=== PATIENT | male | born 1985 | race Caucasian/White ===

== ENCOUNTER 2017-07-14 09:47 | Inpatient (IN) | payer OTHER ==
[~2017-07-14] VITALS: Ht 165.1 cm; Wt 85.9 kg
--- NOTE | 2017-07-14 09:49 | ED PSYCHIATRIC COMPLAINT ---
History of Present Illness General Chief Complaint: Psychiatric Related Complaint Stated Complaint: BIBA, DEPRESSION,+SI Source: patient Exam Limitations: no limitations Vital Signs & Intake/Output Vital Signs & Intake/Output Vital Signs Date Time Temp Pulse Resp B/P B/P Pulse O2 O2 Flow FiO2 Mean Ox Delivery Rate 07/14 1010 97 Room Air Room Air 07/14 1004 96.8 96 18 138/83 97 Room Air Room Air Allergies Coded Allergies: Penicillins (Intermediate, RASH 07/14/17) Reconcile Medications Cariprazine HCl (Vraylar) 1.5 MG CAPSULE 1 TAB PO DAILY MENTAL HEALTH ( Reported) Citalopram Hydrobromide (Citalopram HBr) 20 MG TABLET 1 TAB PO DAILY MENTAL HEALTH (Reported) Esomeprazole (Nexium) 40 MG CAPSULE.DR 1 CAP PO DAILY ACID REFLUX (Reported) Levetiracetam (Levetiracetam ER) 500 MG TAB.ER.24H 2 TAB PO BID SEIZURES ( Reported) [place] Carbonate ([place] Carbonate ER) 300 MG TABLET.ER 1 CAP PO DAILY MENTAL HEALTH (Reported) [place] Carbonate ([place] Carbonate ER) 450 MG TABLET.ER 1 TAB PO QPM MENTAL HEALTH (Reported) Olanzapine 5 MG TABLET 1 TAB PO QPM MENTAL HEALTH (Reported) Phenytoin Sodium Extended 100 MG CAPSULE 1 CAP PO BID SEIZURES (Reported) Triage Nurses Notes Reviewed? yes Onset: Abrupt Duration: day(s): (FEW) Timing: recent history Severity: moderate, severe Associated Symptoms: suicidal ideation, DEPRESSION HPI: 31 year old male presents via EMS from [facility] for suicidal ideation with plan. History of 3 suicide attempts and longstanding history of depression with psychotic symptoms. Patient has a plan to cut his wrists this morning. He had a knife and was able to stop himself. Symptoms have gotten worse since and reports increased stress from work. Patient reports he was receiving multiple requests for more tasks which stressed amount and then he fell asleep. Patient on lithium and olanzapine. Last hospitaliztion? for rachid was in 2015. Patient went to [facility] this morning voluntarily. Past History Travel History Traveled to [place] past 21 day No Medical History Any Pertinent Medical History? see below for history Neurological: seizure Psychiatric: bipolar disease Surgical History Surgical History: non-contributory Psychosocial History Who do you live with Family What is your primary language Tuvaluan Illicit Drug Use: denies illicit drug use Family History Comment: sister bipolar grandfather depression Hx Contributory? Yes Review of Systems Review of Systems Constitutional: Denies: chills, fever. EENTM: Reports: no symptoms. Respiratory: Reports: no symptoms. Cardiovascular: Reports: no symptoms. GI: Reports: no symptoms. Genitourinary: Reports: no symptoms. Musculoskeletal: Reports: no symptoms. Skin: Reports: no symptoms. Neurological/Psychological: Reports: ataxia, depressed. Hematologic/Endocrine: Reports: no symptoms. Immunologic/Allergic: Reports: no symptoms. All Other Systems: Reviewed and Negative Physical Exam Physical Exam General Appearance: well developed/nourished, alert, awake, mild distress, moderate distress Head: atraumatic, normal appearance Eyes: Bilateral: normal appearance. Ears, Nose, Throat: hearing grossly normal Neck: normal inspection, supple, full range of motion Respiratory: normal breath sounds Cardiovascular: regular rate/rhythm Extremities: normal range of motion Neurological/Psychiatric: no motor/sensory deficits, awake, alert Appearance/Memory/Insight: appropriate insight, disheveled Behavoir/Eye Contact/Speech: normal speech, good eye contact Thoughts/Hallucinations: no apparent hallucination Skin: intact, normal color, warm/dry SAD PERSONS SAD PERSONS Response Value Male Sex? yes 1 Depression/Hopelessness? yes 2 Previous Attempts/Psych Care yes 1 Organized/Serious Attempt yes 2 Social Support? has support 0 Stated Future Intent? yes 2 Total 8 SAD PERSONS Done? yes Progress Differential Diagnosis: BIPOLAR ILLNESS, SUICIDAL IDEATION Plan of Care: Orders Procedure Date/time Status LITHIUM 07/18 0600 Active Regular Diet 07/14 L Complete Regular Diet 07/14 D Active Admit to inpatient 07/14 1150 Active EKG 07/14 1148 Active Lab Add-on Test 07/14 1145 Active Lab Add-on Test 07/14 1143 Active Patient Data - inpatient psych 07/14 1135 Active Admit to inpatient psych 07/14 1135 Active TSH REFLEX 07/14 1025 Active LIPID PANEL 07/14 1025 Active GLYCOSYLATED HGB 07/14 1025 Active DILANTIN 07/14 1025 Active Add-on Test (ER Only) 07/14 1009 Active Continuous Observation Monitor 07/14 0950 Active URINE DRUGS OF ABUSE 07/14 0950 Complete LITHIUM 07/14 0950 Active ETHANOL 07/14 0950 Active COMPREHENSIVE METABOLIC PANEL 07/14 0950 Active CBC WITHOUT DIFFERENTIAL 07/14 0950 Complete ED CRISIS PSYCH CONSULT 07/14 0950 Active Vital Signs 07/14 UNK Active Nursing Misc 07/14 UNK Active Alternative Nursing Therapy 07/14 UNK Active Activity/Ambulation 07/14 UNK Active Current Medications Sig/Evelyne Start time Last Medication Dose Stop Time Status Admin Cholecalciferol 2,000 IU DAILY 07/15 1000 UNVr (Vitamin D) Citalopram 20 MG DAILY 07/15 1000 UNVr Hydrobromide (Celexa) [place] Carbonate 300 MG DAILY@0807/15 08 UNVr (Lithobid Slow Release) Omeprazole 40 MG DAILY AC 07/15 07 UNVr (Prilosec) Levetiracetam 1,000 MG BID 07/14 2199 UNVr (Keppra) Olanzapine 5 MG AT BEDTIME 07/14 2199 UNVr (Zyprexa) Phenytoin 100 MG BID 07/14 2199 UNVr (Dilantin ER) [place] Carbonate 600 MG DAILY@07/14 UNVr (Lithobid Slow Release) Hydroxyzine HCl 25 MG AT BEDTIME NEED.. 07/14 1200 UNVr (Atarax) Acetaminophen 650 MG Q6P PRN 07/14 1145 UNVr (Tylenol) Al Hydroxide/Mg 30 ML Q4-6 PRN PRN 07/14 1145 UNVr Hydroxide (Maalox Plus) Benztropine Mesylate 1 MG Q6P PRN 07/14 1145 UNVr (Cogentin 1 MG Tablet) Benztropine Mesylate 1 MG Q6P PRN 07/14 1145 UNVr (Cogentin) Gabapentin 300 MG Q6P PRN 07/14 1145 UNVr (Neurontin) Haloperidol 5 MG Q6P PRN 07/14 1145 UNVr (Haldol) Haloperidol 5 MG Q6P PRN 07/14 1145 UNVr (Haldol) Lorazepam 2 MG Q6P PRN 07/14 1145 UNVr (Ativan) Magnesium Hydroxide 30 ML AT BEDTIME PRN 07/14 1145 UNVr (Milk Of Magnesia) Laboratory Tests 07/14/17 1025: Phenytoin Pending, [place] 0.6, Serum Alcohol < 10.0 07/14/17 1025: Anion Gap 11, Estimated GFR > 60, BUN/Creatinine Ratio 11.4, Glucose 107 H, Hemoglobin A1c Pending, Calcium 9.4, Total Bilirubin 0.3, AST 23, ALT 48, Alkaline Phosphatase 141 H, Total Protein 7.7, Albumin 4.3, Globulin 3.4, Albumin/Globulin Ratio 1.3, Triglycerides Pending, Cholesterol Pending, LDL Cholesterol, Calc Pending, HDL Cholesterol Pending, Cholesterol/HDL Ratio Pending, TSH &T3 &Free T4 Intrp Pending, CBC w Diff NO MAN DIFF REQ, RBC 5.03, MCV 86.3, MCH 29.7, RDW 12.8, MPV 7.3 L, Gran % 70.9, Lymphocytes % 19.4 L, Monocytes % 7.6, Eosinophils % 1.8, Basophils % 0.3, Absolute Granulocytes 6.5, Absolute Lymphocytes 1.8, Absolute Monocytes 0.7 H, Absolute Eosinophils 0.2, Absolute Basophils 0, PUBS MCHC 34.4, Urine Opiates Screen < 100.00, Methadone Screen < 40, Barbiturate Screen < 60, Ur Phencyclidine Scrn < 6.00, Amphetamines Screen < 100, U Benzodiazepines Scrn < 85, Urine Cocaine Screen < 50, Urine Cannabis Screen < 5.00 Departure Departure Time of Disposition: 1150 Disposition: STILL A PATIENT Condition: Stable Clinical Impression Primary Impression: Bipolar disorder with psychotic features Referrals: Anuradha Dozier MD (PCP/Family) Departure Forms: Customer Survey General Discharge Information Psych Admission Note Psychiatric Admission: I have seen and evaluated LE MORAN. I have also reviewed all the pertinent lab results and diagnostic results. LE MORAN will be admitted to our inpatient Psychiatric unit for treatment and care.
--- NOTE | 2017-07-14 10:14 | ED PSY CRISIS COLLATERAL NOTE ---
Collateral Note Collateral Note Family/Inform/Farhana Contacts: Received call from Lizbet Guillen APRN, OPS stating she met with patient this morning for a med management appointment and is sending pt over for crisis evaluation due to his inability to renew promise for safety. Patient is a 31 year old male with diagnoses of epilepsy and Bipolar Disorder with psychotic features MRE depressed. Patient is prescribed 2 anticonvulsants for epilepsy. Lizbet prescribes Celexa, [place], Vraylar, Zyprexa and Atarax (as needed for sleep, which patient reports he has not been taking). Patient a history of suicide attempt by overdose and was last inpatient 3 years ago. Currently, patient is experiencing work and financial stress as he was recently demoted. Lizbet reports during his most recent manic episode he spent thousands of dollars. Today, per Lizbet, patient had reported worsened depressive symptoms with +SI over the past two days with plan to slice my wrists. States he did not act on thoughts as his and children were there, however patient believes he would have followed through if they were not.
[2017-07-14 10:39] LABS: ABSOLUTE BASOPHIL COUNT 0 /CUMM (0.0-0.2); ABSOLUTE EOSINOPHIL COUNT 0.2 /CUMM (0.0-0.7); ABSOLUTE GRANULOCYTE CT 6.5 /CUMM (1.4-6.5); ABSOLUTE LYMPH COUNT 1.8 /CUMM (1.2-3.4); ABSOLUTE MONOCYTE COUNT 0.7 /CUMM (0.10-0.60); BASOPHIL % 0.3 % (0.0-2.0); EOSINOPHIL % 1.8 % (0-5); GRANULOCYTE % 70.9 % (42.2-75.2); HEMATOCRIT 43.4 % (42-52); MEAN CORPUSCULAR HGB 29.7 PG (27.0-31.0); MEAN CORPUSCULAR HGB CONC 34.4 G/DL (33.0-37.0); MEAN CORPUSCULAR VOLUME 86.3 FL (80.0-94.0); MEAN PLATELET VOLUME 7.3 FL (7.4-10.4); PLATELET COUNT 225 /CUMM (130-400); RBC DISTRIBUTION WIDTH 12.8 % (11.5-14.5); RED BLOOD CELL CT 5.03 /CUMM (4.70-6.10); WHITE BLOOD CELL COUNT 9.1 /CUMM (4.8-10.8)
[2017-07-14 10:54] LABS: LITHIUM 0.6 mmol/L (0.6-1.2)
[2017-07-14] MEDS ORDERED: VRAYLAR1.5 MG PO (11:23)
[2017-07-14] MEDS ORDERED: NEXIUM40 M1 PO (11:23)
[2017-07-14] MEDS ORDERED: LEVETIRACETAM500 M3 PO (11:23)
[2017-07-14] MEDS ORDERED: LITHIUM CARBON300 M6 PO (11:24)
[2017-07-14] MEDS ORDERED: PHENYTOIN SODI100 MG PO (11:24)
[2017-07-14] MEDS ORDERED: LITHIUM CARBON450 M1 PO (11:24)
[2017-07-14] MEDS ORDERED: OLANZAPINE5 M2 PO (11:24)
[2017-07-14] MEDS ORDERED: CITALOPRAM HBR20 MG PO (11:25)
--- NOTE | 2017-07-14 12:22 | ED PSYCH CRISIS CONSULTATION ---
Crisis Consult Basic Assessment Date of Consult: 07/14/17 Responsible Person/Accompanied By: self Insurance Authorization: Insurance #1: Insurance name: [employer] Phone number: Policy number: [id number] Group number: [id number] Authorization number: ED Provider: Patient's ED Provider: Geneva Lara MD Primary Care Physician: Patient's PCP: Jacoby CASTILLO,Anuradha PCP's Current Psychiatrist: Lizbet Breen APRN Chief Complaint: Psychiatric Related Complaint Patient's Quote: "Basically since . I've been depressed. Suicidal Sat & Sun " Present Illness: Patient is a 31 year old man presenting in the ED following a medication management meeting with Lizbet Breen APRN. Patient endorses suicidal ideation with a plan to cut his wrists. Patient reports he has been feeling increasingly depressed since last and suicidal Friday and Friday. He reports he did not attempt to harm or kill himself over the weekend since his and two children were home. Patient endorses the following depressive symptoms: sleep disturbance- sleeping more, isolation, decreased appetite, decreased concentration, and suicidal ideation. Patient denies HI/AH/VH at this time. Patients work stress and financial stress are triggers to increased depression. Patient is currently prescribed Celexa 20mg daily, Zyprexa 5pm at night, Vraylar 1.5mg at night, Reeves (300mg in the AM & 600mg in the evening) and Atarax 25 mg at night prn sleep. Patient reports he has weight gain from the Zyprexa and has not taken the Atarax for sleep. Patients lithium level was 0.6 on 07/14/17 while in ED. Patients toxicology screen was negative for all substances. Patient is diagnosed with Epilepsy and is prescribed two anticonvulsant medications. His last seizure was 5 years ago. Patient has a long history of mental health treatment including inpatient psychiatric hospitalizations at [place] (2011) and [place] (2013); IOP at [place]; and outpatient at [place], Dr. Briones ([place]), [facility] and [facility]. Patient is a current outpatient client with Lizbet Breen and has been in treatment with her since 2016 when his insurance changed and he was no longer able to see Dr. Briones. Patient reports 3 past suicide attempts since 2007, all overdoses with the most severe being overdosing on 150 tablets of Lamictal. Patient states today is the first time he has sought help before making a suicide attempt while experiencing suicidal ideation. Per Lizbet Breen APRN- Received call from Lizbet Breen APRN, [facility] stating she met with patient this morning for a med management appointment and is sending pt over for crisis evaluation due to his inability to renew promise for safety. Patient is a 31 year old male with diagnoses of epilepsy and Bipolar Disorder with psychotic features MRE depressed. Patient is prescribed 2 anticonvulsants for epilepsy. Lizbet prescribes Celexa, Reeves, Vraylar, Zyprexa and Atarax (as needed for sleep, which patient reports he has not been taking). Patient a history of suicide attempt by overdose and was last inpatient 3 years ago. Currently, patient is experiencing work and financial stress as he was recently demoted. Lizbet reports during his most recent manic episode he spent thousands of dollars. Today, per Lizbet, patient had reported worsened depressive symptoms with +SI over the past two days with plan to slice my wrists. States he did not act on thoughts as his and children were there, however patient believes he would have followed through if they were not. 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 Patient will be admitted to CPS as he endorses suicidal ideation with thoughts to cut his wrist. Patient will sign in voluntarily. Patient's Address: [address] [place] [address] Other Who Do You Live With? Family Family/Informants Interviewed: at work. Spoke to Lizbet breen. Allergies - Coded Allergies: Penicillins (Intermediate, RASH 07/14/17) Current Medications - Scheduled Medications Cariprazine HCl (Vraylar) 1.5 MG CAPSULE 1 TAB PO DAILY MENTAL HEALTH #30 ( Reported) Entered as Reported by James Cheng on 07/14/17 1123 Citalopram Hydrobromide (Citalopram HBr) 20 MG TABLET 1 TAB PO DAILY MENTAL HEALTH #30 (Reported) Entered as Reported by James Cheng on 07/14/17 1125 Esomeprazole (Nexium) 40 MG CAPSULE.DR 1 CAP PO DAILY ACID REFLUX #90 ( Reported) Entered as Reported by James Cheng on 07/14/17 1123 Levetiracetam (Levetiracetam ER) 500 MG TAB.ER.24H 2 TAB PO BID SEIZURES #120 (Reported) Entered as Reported by James Cheng on 07/14/17 1123 Reeves Carbonate (Reeves Carbonate ER) 300 MG TABLET.ER 1 CAP PO DAILY MENTAL HEALTH #60 (Reported) Entered as Reported by James Cheng on 07/14/17 1124 Reeves Carbonate (Reeves Carbonate ER) 450 MG TABLET.ER 1 TAB PO QPM MENTAL HEALTH #30 (Reported) Entered as Reported by James Cheng on 07/14/17 1124 Olanzapine 5 MG TABLET 1 TAB PO QPM MENTAL HEALTH #30 (Reported) Entered as Reported by James Cheng on 07/14/17 1124 Phenytoin Sodium Extended 100 MG CAPSULE 1 CAP PO BID SEIZURES #180 (Reported ) Entered as Reported by James Cheng on 07/14/17 1124 Laboratory Results: Laboratory Tests 07/14/17 1025: Phenytoin 6.7 L, Reeves 0.6, Serum Alcohol < 10.0 07/14/17 1025: Anion Gap 11, Estimated GFR > 60, BUN/Creatinine Ratio 11.4, Glucose 107 H, Hemoglobin A1c Pending, Calcium 9.4, Total Bilirubin 0.3, AST 23, ALT 48, Alkaline Phosphatase 141 H, Total Protein 7.7, Albumin 4.3, Globulin 3.4, Albumin/Globulin Ratio 1.3, Triglycerides 302 H, Cholesterol 242 H, LDL Cholesterol, Calc 131 H, HDL Cholesterol 51, Cholesterol/HDL Ratio 5 H, TSH & T3 &Free T4 Intrp Pending, CBC w Diff NO MAN DIFF REQ, RBC 5.03, MCV 86.3, MCH 29.7, RDW 12.8, MPV 7.3 L, Gran % 70.9, Lymphocytes % 19.4 L, Monocytes % 7.6, Eosinophils % 1.8, Basophils % 0.3, Absolute Granulocytes 6.5, Absolute Lymphocytes 1.8, Absolute Monocytes 0.7 H, Absolute Eosinophils 0.2, Absolute Basophils 0, PUBS MCHC 34.4, Urine Opiates Screen < 100.00, Methadone Screen < 40, Barbiturate Screen < 60, Ur Phencyclidine Scrn < 6.00, Amphetamines Screen < 100, U Benzodiazepines Scrn < 85, Urine Cocaine Screen < 50, Urine Cannabis Screen < 5.00 Past History Past Medical History Neurological: seizure EENT: NONE Cardiovascular: NONE Respiratory: NONE Gastrointestinal: GERD Hepatic: NONE Renal: NONE Musculoskeletal: NONE Psychiatric: bipolar disease Endocrine: NONE Blood Disorders: NONE Cancer(s): adrenal cancer Past Surgical History Surgical History: non-contributory Psychosocial History Strengths/Capabilities: 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 Despite reporting financial problems he reports he can pay his mortgage every month. Patient is seeking help prior to SA when in past he has attempted suicide then recieved tx. Physical Limitations (Interventions): none observed Psychiatric Treatment History Psych Treatment Psychiatric Treatment Yes Inpatient Treatment Yes Outpatient Treatment Yes Location of Treatment IP- [facility] [place]; OP- [facility] [place], Dr. Briones, [facility] Reason for Treatment Suicide Attempt, Suicidal Ideation, Psychosis, Depression Dates of Treatment multiple starting in 2002 Response to Treatment fair Diagnosis by History: Bipolar Disorder with psychotic features MRE depressed Substance Use/Abuse History Drug Use/Abuse Substances Used/Abused No Substance Abuse Treatment Substance Abuse Treatment Past Substance Abuse [place] Yes Inpatient Treatment No Outpatient Treatment Yes Location of Treatment [facility] Reason for Treatment cocaine abuse Dates of Treatment 2002 Response to Treatment stopped use of cocaine and moved to [place] Current Mental Status Mental Status Orientation: Person, Place, Situation Affect: Flat Speech: Soft Neuro-vegetative: Appetite Decreased, Concentration Poor, Energy Decreased, Sleep Disturbance Appearance Appearance- Dress/Hygiene: Patient presented in hospital attire wearing eye glasses. No other remarkable features. Behaviors Thought Process: WNL Thought Content: WNL Memory: WNL Insight: Fair SI/HI Risk Assessment Past Suicidal Ideation/Attempts Yes Current Suicidal Ideation/Att Yes Past Homicidal Ideation/Att: No Current Homicidal Ideation/Attempts No Degree of Intent: Plan (thinking about cutting wrists) Danger To: Self Risk Factors: history of suicide atmpts, SA/MH hospitalized, male, limited support Lethality Ratin PTSD Checklist PTSD Done? patient declined ED Management Sitter: Yes Restraints: No DSM5/PS Stressors/Medical Prob Diagnosis' (DSM 5, Stressors, Medical): F31.5 Bipolar Disorder with psychotic features, MRE depressed Epilepsy (controlled by medication) GERD Work and financial stress Current GAF: 20 Departure Disposition Psych Medical Clearance Date: 07/14/17 Medically Cleared at: 1104 Time Started: 1104 Time Ended: 1124 Psychiatrist Consulted: David Rasheed MD Date Disposition Established: 07/14/17 Time Disposition Established: 113 Plan for Disposition - Modality: Inpatient Psychiatry Rationale for Disposition: Pt +SI with 3 previous Suicide attempts by overdose Type of IP Admission: Voluntary Referrals Jacoby CASTILLO,Anuradha (PCP/Family)
[2017-07-14 12:55] VITALS: BP 128/77
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
--- NOTE | 2017-07-14 14:32 | CPS PROVIDER INIT ASMT PSYCH ---
Psychiatric Admission Printing Screen Assembler's Note Reviewed: Yes Patient Seen and Examined: Yes Identifying Information: cancel, error, duplicate Past Psychiatric History - Include inpatient and outpatient treatment Allergies: Coded Allergies: Penicillins (Intermediate, RASH 07/14/17) - Include any medical condition(s) that may - impact the patient's recovery/remission Past History Medical History Neurological: seizure EENT: NONE Cardiovascular: NONE Respiratory: NONE Gastrointestinal: GERD Hepatic: NONE Renal: NONE Musculoskeletal: NONE Psychiatric: bipolar disease Endocrine: NONE Blood Disorders: NONE History of MRSA: No History of VRE: No History of CDIFF: No Isolation History: Standard Healthly Behaviors Screening Tobacco Screening Tobacco Use from ED Docu: Never used - If tobacco counseling indicated - the following topics are required. - #1 Recognizing dangerous situations. - #2 Coping Skills. - #3 Basic information about quitting. Alcohol Screening - ETOH screen POS if BAL >=80 or Audit-C>= M4/F3 Audit-C Score from Diag Assess: 0 - If ETOH counseling indicated - the following topics are required. - #1 Express concern about the patient's - drinking at unhealthy levels, include informing - of national norms for moderate drinking: - men <= 14 drinks/week, max 4 drinks/occasion - women <= 7 drinks/week, max 3 drinks/occasion - #2 Providing feedback, including linking alcohol to - negative physical effects (liver injury, hypertension) - negative emotional effects (relationship problems and - depression) - negative occupational consequences (reduced work - performance) - #3 Advising the patient to abstain from alcohol or - to drink below national norms for moderate drinking - (as listed above). Metabolic Screening - Screen if on a Neuroleptic Medication - Metabolic screening should include: - Blood Pressure, BMI, Glucose or Hgb A1c, & a - Lipid profile from within the past 365 days. Exam and Plan Impression/Plan - Include all active medical diagnosis that require tx - Initial Tx Plan for Active Psych & Medical Conditions - Factors that would help patient function - in a less restrictive setting.
--- NOTE | 2017-07-14 15:17 | Cons- Medical ---
General Information and HPI Consulting Request Date of Consult: 07/14/17 Requested By: David Rasheed MD Reason for Consult: Medical H & P Source of Information: patient, old records Exam Limitations: no limitations History of Present Illness: 31-year-old male past medical history of bipolar disorder and epilepsy who is here with acute suicidality in the setting of a bipolar disorder. He denies any other medical problems. He says he was only hospitalized for a suicidal attempt in the past. He says that he is followed by a neurologist at [facility] for his epilepsy and his last seizure was 5 years ago. His primary care physician is Biju Dozier MD. He denies nausea, vomiting, diarrhea. He denies cough, chest pain or shortness of breath. Allergies/Medications Allergies: Coded Allergies: Penicillins (Intermediate, RASH 07/14/17) Home Med List: Cariprazine HCl (Vraylar) 1.5 MG CAPSULE 1 TAB PO DAILY MENTAL HEALTH ( Reported) Citalopram Hydrobromide (Citalopram HBr) 20 MG TABLET 1 TAB PO DAILY MENTAL HEALTH (Reported) Esomeprazole (Nexium) 40 MG CAPSULE.DR 1 CAP PO DAILY ACID REFLUX (Reported) Levetiracetam (Levetiracetam ER) 500 MG TAB.ER.24H 2 TAB PO BID SEIZURES ( Reported) [place] Carbonate ([place] Carbonate ER) 300 MG TABLET.ER 1 CAP PO DAILY MENTAL HEALTH (Reported) [place] Carbonate ([place] Carbonate ER) 450 MG TABLET.ER 1 TAB PO QPM MENTAL HEALTH (Reported) Olanzapine 5 MG TABLET 1 TAB PO QPM MENTAL HEALTH (Reported) Phenytoin Sodium Extended 100 MG CAPSULE 1 CAP PO BID SEIZURES (Reported) Review of Systems Review of Systems Constitutional: Denies: no symptoms, chills, diaphoresis, fever. Cardiovascular: Denies: no symptoms, chest pain, edema, orthopena. Respiratory: Denies: no symptoms, cough, hemoptysis, orthopnea. GI: Denies: no symptoms, abdominal pain, bloating, constipation. Genitourinary: Denies: no symptoms, discharge, dysuria. All Other Systems: Reviewed and Negative Past History Travel History Traveled to [place] past 21 day No Medical History Neurological: seizure EENT: NONE Cardiovascular: NONE Respiratory: NONE Gastrointestinal: GERD Hepatic: NONE Renal: NONE Musculoskeletal: NONE Psychiatric: bipolar disease Endocrine: NONE Blood Disorders: NONE Surgical History Surgical History: non-contributory Psychosocial History Where Do You Live? Home Who Do You Live With? spouse Smoking Status: Never Smoked ETOH Use: denies use Illicit Drug Use: denies illicit drug use Other Social History: Pt is and lives at home with his and children. 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 Family history is noncontributory. He says his father is alive and healthy and his mother when she was in [place] so he doesn't know what she off. 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 Exam & Diagnostic Data Last 24 Hrs of Vital Signs/I&O Vital Signs Date Time Temp Pulse Resp B/P B/P Pulse O2 O2 Flow FiO2 Mean Ox Delivery Rate 07/14 1255 97.3 88 128/77 07/14 1227 98.3 86 18 130/81 99 Room Air Room Air 07/14 1010 97 Room Air Room Air 07/14 1004 96.8 96 18 138/83 97 Room Air Room Air Intake & Output 07/14 1600 07/14 0800 07/14 0000 Intake Total Output Total Balance Patient 85.899 kg Weight Weight Reported by Patient Measurement Method Physical Exam General Appearance: well developed/nourished, no apparent distress, alert, awake Head: atraumatic, normal appearance Eyes: Bilateral: normal appearance, PERRL, EOMI. Ears, Nose, Throat: normal pharynx, normal ENT inspection Neck: normal inspection, supple, full range of motion Respiratory: normal breath sounds, chest non-tender, no respiratory distress Cardiovascular: regular rate/rhythm Gastrointestinal: normal bowel sounds, soft, non-tender, no organomegaly Back: normal inspection, normal range of motion Extremities: normal capillary refill, no edema Neurologic/Psych: no motor/sensory deficits, awake, alert, oriented x 3, normal gait Other Physical Findings: Pt is awake, alert and oriented, cranial nerves III-12 are intact, motor and sensory are intact. Reflexes are 2+ and symmetric and gait is normal. Last 24 Hrs of Labs/Mata: Laboratory Tests 07/14/17 1025: Phenytoin 6.7 L, [place] 0.6, Serum Alcohol < 10.0 07/14/17 1025: Anion Gap 11, Estimated GFR > 60, BUN/Creatinine Ratio 11.4, Glucose 107 H, Hemoglobin A1c 4.9, Calcium 9.4, Total Bilirubin 0.3, AST 23, ALT 48, Alkaline Phosphatase 141 H, Total Protein 7.7, Albumin 4.3, Globulin 3.4, Albumin/ Globulin Ratio 1.3, Triglycerides 302 H, Cholesterol 242 H, LDL Cholesterol, Calc 131 H, HDL Cholesterol 51, Cholesterol/HDL Ratio 5 H, TSH &T3 &Free T4 Intrp 2.650, CBC w Diff NO MAN DIFF REQ, RBC 5.03, MCV 86.3, MCH 29.7, RDW 12.8, MPV 7.3 L, Gran % 70.9, Lymphocytes % 19.4 L, Monocytes % 7.6, Eosinophils % 1.8, Basophils % 0.3, Absolute Granulocytes 6.5, Absolute Lymphocytes 1.8, Absolute Monocytes 0.7 H, Absolute Eosinophils 0.2, Absolute Basophils 0, PUBS MCHC 34.4, Urine Opiates Screen < 100.00, Methadone Screen < 40, Barbiturate Screen < 60, Ur Phencyclidine Scrn < 6.00, Amphetamines Screen < 100, U Benzodiazepines Scrn < 85, Urine Cocaine Screen < 50, Urine Cannabis Screen < 5.00 Assessment/Plan Assessment/Plan 31-year-old male past medical history of epilepsy was maintained on phenytoin and Keppra as an outpatient and has been seizure-free for the past 5 years. He is here with depressive symptoms with bipolar disorder. Continue his Keppra and his phenytoin. Treatment of his depressive symptoms as per psychiatry. Outpatient neurological and PCP follow-up on discharge. Problem List: 1. Bipolar disorder with psychotic features Consult Acknowledgment - Thank you for your consult request.
--- NOTE | 2017-07-14 15:42 | CPS PROVIDER INIT ASMT PSYCH ---
Psychiatric Admission Cellar Hand's Note Reviewed: Yes Patient Seen and Examined: Yes Identifying Information: 32-year-old male of [place] origins presented to the medical emergency room following a visit with Lizbet breen APRN Chief Complaint: The patient endorsed suicidal ideation with a plan to cut his wrist Reaction to Hospitalization: The patient was agreeable to the hospitalization History of Present Illness Onset of Illness: The patient presented to see his nurse practitioner Lizbet breen APRN she suggested that he come to the emergency room to be evaluated for admission. The reason for the admission was increase in his symptoms and reporting suicidal thoughts. Circumstances Leading to Admission: Patient reported suicidal thinking during the visit for medication management with his nurse practitioner Problem(s) Justifying Need for Admission: Suicidal thinking Past Psychiatric History Past Diagnosis(es)- if any: Bipolar mood disorder Epilepsy Rule out mood disorder due to epilepsy Past Precipitating Factors- if any: Stress at work - Include inpatient and outpatient treatment Treatment History: The patient has been previously and Inpatient Psychiatry and has been most recently attending the outpatient treatment at [facility] History of Suicide Attempts or Gestures The patient reportedly had 3 previous suicide attempts the most serious one was his first which was an overdose on reportedly 150 tablets of Lamictal Substance Abuse History: Past history of cocaine use in 2002 for about 6 months Allergies: Coded Allergies: Penicillins (Intermediate, RASH 07/14/17) Home Med List: Vraylar 1.5 mg once daily Citalopram 20 mg once daily Nexium 40 mg once daily Keppra 1000 mg twice daily [place] carbonate 300 mg in the morning and 450 mg in the evening olanzapine 5 mg in the evening and phenytoin 100 mg twice daily - Include any medical condition(s) that may - impact the patient's recovery/remission Past Medical History: Epilepsy since age 6 also Past History Medical History Neurological: seizure EENT: NONE Cardiovascular: NONE Respiratory: NONE Gastrointestinal: GERD Hepatic: NONE Renal: NONE Musculoskeletal: NONE Psychiatric: bipolar disease Endocrine: NONE Blood Disorders: NONE History of MRSA: No History of VRE: No History of CDIFF: No Isolation History: Standard Surgical History Surgical History: none Psychiatric Family/Social Hx Family History Psychiatric Illness: None known family history of psychiatric illness Substance Use: Denied Suicides: Denied Other Family History: Mother young age and in [place] from of any acute illness Social History Living Situation: Lives with his and 2 children Significant Relationships (family/friends): and 2 children Education: He has a [employer] degree Vocation/Occupation: Works in the [employer] Legal: no known legal problems Healthly Behaviors Screening Tobacco Screening Tobacco Use from ED Docu: Never used - If tobacco counseling indicated - the following topics are required. - #1 Recognizing dangerous situations. - #2 Coping Skills. - #3 Basic information about quitting. Status of Tobacco Cessation Counseling: Not Applicable Cessation Med Status Not Applicable Alcohol Screening - ETOH screen POS if BAL >=80 or Audit-C>= M4/F3 Audit-C Score from Diag Assess: 0 Blood Alcohol Level: Laboratory Tests 07/14 1025 Toxicology Serum Alcohol (<10 MG/DL) < 10.0 Alcohol Use Screening Results: Neg per Audit C &/or BAL - If ETOH counseling indicated - the following topics are required. - #1 Express concern about the patient's - drinking at unhealthy levels, include informing - of national norms for moderate drinking: - men <= 14 drinks/week, max 4 drinks/occasion - women <= 7 drinks/week, max 3 drinks/occasion - #2 Providing feedback, including linking alcohol to - negative physical effects (liver injury, hypertension) - negative emotional effects (relationship problems and - depression) - negative occupational consequences (reduced work - performance) - #3 Advising the patient to abstain from alcohol or - to drink below national norms for moderate drinking - (as listed above). Status of ETOH Use Counseling: N/A B/C NO ETOH Use Metabolic Screening - Screen if on a Neuroleptic Medication - Metabolic screening should include: - Blood Pressure, BMI, Glucose or Hgb A1c, & a - Lipid profile from within the past 365 days. Metabolic Screening () Not Applicable, patient not on a neuroleptic. OR ([X]) Patient on a neuroleptic(s) . Enter below results for Hemoglobin A1C, and lipid panel if obtained during the last 365 days. BMI: 31.500 Blood Pressure: 128/77 Laboratory Results From [facility] (If applicable): Lab Alkaline Phosphatase 141 U/L H 07/14/17 1025 Cholesterol 242 MG/DL H 07/14/17 1025 Cholesterol/HDL Ratio 5 % H 07/14/17 1025 HDL Cholesterol 51 mg/dL 07/14/17 1025 Hemoglobin A1c 4.9 % 07/14/17 1025 LDL Cholesterol, Calc 131 mg/dL H 07/14/17 1025 Triglycerides 302 mg/dL H 07/14/17 1025 Exam and Plan Mental Status Examination Ambulation Status: Full mobility Appearance: Unremarkable Attitude towards examiner: Friendly and cooperative Psychomotor activity: Normal Behavior: Normal Quality of speech: Normal Affect: Euthymic Mood: Depressed Suicidal Ideation: Endorsed suicidal ideation Homicidal Ideation: Denied homicidal ideation Hallucinations: Denied current hallucinations Paranoid/Delusional Material: Denied current paranoia Difficulties with thought organization: Coherent Insight: Good Judgment: good Orientation: Oriented to time place and person Cognition: No deficits Memory Function: No deficits Estimate of intellectual functioning: Average Assets/Strengths Patient Identified Assets/Strengths: Intelligent and hard-working Impression/Plan Impression and Plan: 31-year-old male of [place] origin's presented with increasing depression and thoughts of suicide - Include all active medical diagnosis that require tx DSM 5 Diagnosis(es): Bipolar 1 disorder most recent episode depressed - Initial Tx Plan for Active Psych & Medical Conditions Treatment Plan: Inpatient psychiatric care 15 minute checks Nursing assessments once a shift And group therapy activities therapy and milieu therapy Discharge planning and coordination of care by social media designer Daily evaluations by Yeny - Factors that would help patient function - in a less restrictive setting. Factors: Managing stress at work
[2017-07-14 16:03] VITALS: BP 131/78
[2017-07-14 19:55] VITALS: BP 137/79
[2017-07-15 08:35] VITALS: BP 133/89
[2017-07-15 12:19] VITALS: BP 127/75
--- NOTE | 2017-07-15 12:25 | CP SOUTH PROGRESS NOTE PSYCH ---
Psych (Inpt) Progress Note Progress Note Care discussed with Lizbet Guillen APRN this morning (in person) 32-year-old male of [place] origins admitted to CPS following a visit with Lizbet Guillen APRN, The patient endorsed suicidal ideation with a plan to cut his wrist Mental Status Examination Full mobility, calm and cooperative, friendly , showed slightly reduced psychomotor activity, normal Behavior, normal speech, slightly constricted affect, mood is a little better/ I am no longer suicidal. Denied homicidal ideation, denied current hallucinations Denied current paranoia, Coherent/no difficulties with thought organization: Oriented to time place and person, No deficits in memory Function Assessment: Mikael is a 31-year-old male of [place] origins who presented with increasing depression and thoughts of suicide Diagnoses (Updated 07/15/2017): Bipolar 1 disorder most recent episode mixed Treatment Plan: Continue Inpatient psychiatric care 15 minute checks Continue nursing assessments once a shift Continue Group therapy activities therapy and milieu therapy Continue Discharge planning and coordination of care by manager social services Continue Daily evaluations by MAr Reduce Olanzapine to 7.5 mg at bedtime Start Fluphenazine 2 mg at bedtime
--- NOTE | 2017-07-15 12:31 | IP INCIDENTAL NOTE PSYCH ---
Incidental Note Notation: Progress Note: [] Lab ALT 48 U/L 07/14/17 1025 AST 23 U/L 07/14/17 1025 Alkaline Phosphatase 141 U/L H 07/14/17 1025 Cholesterol 242 MG/DL H 07/14/17 1025 Cholesterol/HDL Ratio 5 % H 07/14/17 1025 HDL Cholesterol 51 mg/dL 07/14/17 1025 Hemoglobin A1c 4.9 % 07/14/17 1025 LDL Cholesterol, Calc 131 mg/dL H 07/14/17 1025 TSH &T3 &Free T4 Intrp 2.650 uIU/mL 07/14/17 1025 Triglycerides 302 mg/dL H 07/14/17 1025
--- NOTE | 2017-07-15 14:46 | SOCIAL WORKER PROG NOTE PSYCH ---
Social Work Progress Note Progress Note Mikael was taking a nap this afternoon. Woke up when prompted to meet. He presented with a flat, constricted affect. Depressed and anxious. He rated his current depression on a scale of 1-10 (10 being worst) as a 7. He rated his anxiety (same scale) as a 6. He shared that he was feeling very stressed at his job. 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 He stated he started feeling suicidal yesterday and so Lizbet Guillen APRN referred him to the ER. He has a hx of suicide attempts. Last one being in 2013 when he overdosed on pills. He has had a hx of depression since 2007. He is with 2 children. Boys ages 1 and 5. He denies any marital issues or problems at home. He said he started looking for another job 3-4 months ago because he has been having trouble with his current employer. He has only worked at his current job since October. His previous job he was fired at because he thought the FBI was after him. Along with his mood instability, he reports issues around not being able to fall asleep and having racing thoughts. He shared that if he hadn't saw Lizbet yesterday he probably would have followed through with his plan to cut his wrists. His current goal is "to not feel stressed out and to stop the racing thoughts." He denies any SI today. He denies any AH/VH. He did go to groups today and found them to be helpful. He is open to me calling his and setting up a family meeting. He doesn't think he will be able to do IOP when he leaves here, because of work. He works 7-4pm. He isn't considering an FMLA at this point. I called Mikael's [place] [phone]. Left a voicemail to schedule a family meeting.
[2017-07-15 15:58] VITALS: BP 123/73
[2017-07-15 20:14] VITALS: BP 141/74
[2017-07-16 07:49] VITALS: BP 118/76
[2017-07-16 12:24] VITALS: BP 134/67
--- NOTE | 2017-07-16 14:36 | CP SOUTH PROGRESS NOTE PSYCH ---
Psych (Inpt) Progress Note Progress Note Care discussed with team this morning Mental Status Examination Alert, oriented, steady gait, calm and cooperative, friendly, slightly reduced psychomotor activity, normal behavior, normal speech, slightly constricted affect, mood is I am no longer suicidal. He denied homicidal ideation, denied current hallucinations, denied current paranoia, coherent/no difficulties with thought organization, no deficits in memory Function Assessment: Mikael is a 31-year-old male of origins who presented with increasing depression and thoughts of suicide. He made modest progress in mood/ anxiety and is no longer sonsidering suicide as a way out Diagnoses (Updated 07/15/2017): Bipolar 1 disorder most recent episode mixed Treatment Plan: Continue inpatient psychiatric care Continue 15 minute checks Continue nursing assessments once a shift Continue Group therapy Continue milieu therapy Continue discharge planning and coordination of care by dialysis social worker Continue daily evaluations by Yeny Reduce Olanzapine to 5mg at bedtime Continue Fluphenazine 2 mg at bedtime other meds unchanged
[2017-07-16 16:17] VITALS: BP 138/75
--- NOTE | 2017-07-16 16:19 | SOCIAL WORKER PROG NOTE PSYCH ---
Social Work Progress Note Progress Note Called Mikael's again and left a message. As of 4pm today I have not heard back from her. He said he did see her yesterday and that they talked about having a family meeting. I told Mikael to have her plan for 3pm tomorrow if that works and I do not hear from her. He shared that he is doing better today. He feels less depressed than he did. He said that he and his talked and if he has to leave the job where he has been working then it is okay. His plan is to return there, but quit on Friday. He doesn't appear stressed about having to find another job. He said he was getting interest, but couldn't go on any interviews because of his current job. We talked about his plan at discharge. He said he think he will try to do IOP for awhile and return to OPS after. We talked about needing an outlet to talk about things that are stressing him. He said he doesn't always feel he can share his feelings/ thoughts with his . He said he has tried in the past and she doesn't validate how he is feeling. He does have friends, but stated that in the Culture you don't talk about depression or mental health issues. Groups at [facility] would be good as an additional support if he can do that. Reports that he slept ok last night and that the medication helped him go to sleep. No SI today.
[2017-07-16 19:47] VITALS: BP 143/73
[2017-07-17 07:36] VITALS: BP 124/76
[2017-07-17 12:17] VITALS: BP 142/75
--- NOTE | 2017-07-17 13:30 | SOCIAL WORKER PROG NOTE PSYCH ---
Social Work Progress Note Progress Note LE MORAN [id number] 1985 LE MORAN [id number] Pended Authorization # Client Authorization # Type of Request [id number] CONCURRENT Date of Admission/ Start of Services Requested From Submission Date 07/14/2017 07/17/2017 07/17/2017
--- NOTE | 2017-07-17 15:44 | CP SOUTH PROGRESS NOTE PSYCH ---
Psych (Inpt) Progress Note Progress Note Care discussed with team this morning Mental Status Examination Alert, oriented, steady gait, calm and cooperative, friendly, reduced psychomotor activity, normal behavior, normal speech, slightly constricted affect, mood is better"/not that depressed no longer suicidal, denied homicidal ideation, denied current hallucinations, denied current paranoia, coherent/no difficulties with thought organization, no deficits in memory function Assessment: Mikael is a 31-year-old male of origins who presented with increasing depression and thoughts of suicide. He made modest progress in mood/ anxiety and is no longer sonsidering suicide as a way out Diagnoses (Updated 07/15/2017): Bipolar 1 disorder most recent episode mixed Treatment Plan: Continue inpatient psychiatric care Continue 15 minute checks Continue nursing assessments once a shift Continue Group therapy Continue milieu therapy Continue discharge planning and coordination of care by protective services social worker Continue daily evaluations by Yeny Continue Olanzapine 5mg at bedtime Continue Fluphenazine 2 mg at bedtime other meds unchanged
[2017-07-17 16:06] VITALS: BP 140/76
--- NOTE | 2017-07-17 16:25 | SOCIAL WORKER PROG NOTE PSYCH ---
Social Work Progress Note Progress Note Family meeting held with Mikael and his . Dr. Rider was also there for part of the meeting. Mrs. Sims reported that she noticed that Mikael was starting to get more depressed a few days prior to his admission. She said there was no bizarre behaviors or symptoms other than he had increased sleep and decrease in appetite. She knew he was seeing Lizbet Guillen APRN on Friday, so she didn't feel the need to do anything at that point. His last suicide attempt in 2007 was prior to their marriage. They have been together since 2010. She didn't seem to have any specific safety concerns. We talked about the idea of him leaving his current job due to the stress it is inducing. She seemed ok with that plan. Medications that he is currently on were reviewed by Dr. Rider. We talked about the plan for him to attend IOP and the benefits of doing so after discharge. Mikael asked if he could be discharged tomorrow? His also seemed to be in favor, stating that they would have a few days together over the weekend before she returned to work. Due to his reduction in symptoms and not needing inpatient hospitalization at this point, I told him that we would proceed with the discharge for tomorrow. I scheduled an IOP intake for 1:15pm on 07/18. His Father will pick him up. and kids stayed to visit.
[2017-07-17 19:51] VITALS: BP 144/84
[2017-07-18 07:41] VITALS: BP 134/89
--- NOTE | 2017-07-18 10:22 | SOCIAL WORKER PROG NOTE PSYCH ---
Social Work Progress Note Progress Note Mikael is doing well today. Ready for discharge. Visit with family last night went well. He said his stated she was surprised that he ended up at the ER after seeing Lizbet Guillen APRN. She wished he would have opened up to her more. Talked about his safety plan should he start having negative thoughts. He said he will try and talk to his , he would call the suicide hotline, and he is planning to attend [facility]. Of note, I think this program writer may have been mistaken yesterday in the family meeting when I thought he said there had been no suicide attempts since their marriage. He clarified today that there was in 2011 and 2013. He said he was more isolative and not working at that time. 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 He reported no SI today, no sleeping issues, and no racing thoughts. He will leave at noon today, when his Father can pick him up.
[2017-07-18] MEDS ORDERED: FLUPHENAZINE HCL1 M1 PO (10:31)
--- NOTE | 2017-07-18 15:15 | SOCIAL WORKER PROG NOTE PSYCH ---
Social Work Progress Note Faxed Referral(s) Referred To: [facility] Transition of Care Documents sent: Health Summary Faxed to: [facility] Fax #: [phone] Faxed by: Vera Jett Date faxed: 07/18/17 Time Faxed: [phone]
== END 2017-07-18 12:07 | DRG 753 ==
LOC: ERH 09:47 → ERHI 11:50 → CP SOUTH 11:50 → ENRESERV 12:00 → ENTRNSPT 12:29 → EDTRNSPT 12:31 → EDTRNSPTSTS 12:31 → CP SOUTH 12:40 → CMPTRNSPT 12:46 → CP SOUTH 17:10
PROVIDERS: Emergency Medicine
DX: F31.9 Bipolar disorder, unspecified (principal)
CPT/HCPCS: 36415; 80307; 90832; G0463; G0480

== ENCOUNTER 2017-11-11 16:07 | Inpatient (IN) | payer OTHER ==
[~2017-11-11] VITALS: Ht 165.1 cm; Wt 83.9 kg
[~2017-11-11 16:07] MED LIST: CITALOPRAM HBR20 MG PO; FLUPHENAZINE HCL1 M1 PO; LEVETIRACETAM500 M3 PO; LITHIUM CARBON300 M6 PO; LITHIUM CARBON450 M1 PO; NEXIUM40 M1 PO; OLANZAPINE5 M2 PO; PHENYTOIN SODI100 MG PO; VRAYLAR1.5 MG PO
[2017-11-11 17:53] LABS: ABSOLUTE BASOPHIL COUNT 0 /CUMM (0.0-0.2); ABSOLUTE EOSINOPHIL COUNT 0 /CUMM (0.0-0.7); ABSOLUTE GRANULOCYTE CT 4.7 /CUMM (1.4-6.5); ABSOLUTE LYMPH COUNT 1.5 /CUMM (1.2-3.4); ABSOLUTE MONOCYTE COUNT 0.6 /CUMM (0.10-0.60); BASOPHIL % 0.3 % (0.0-2.0); EOSINOPHIL % 0.4 % (0-5); GRANULOCYTE % 68.3 % (42.2-75.2); HEMATOCRIT 41.7 % (42-52); MEAN CORPUSCULAR HGB 29.2 PG (27.0-31.0); MEAN PLATELET VOLUME 7.3 FL (7.4-10.4); PLATELET COUNT 207 /CUMM (130-400); RBC DISTRIBUTION WIDTH 13.5 % (11.5-14.5); RED BLOOD CELL CT 4.85 /CUMM (4.70-6.10); WHITE BLOOD CELL COUNT 6.9 /CUMM (4.8-10.8)
[2017-11-11 18:19] LABS: LITHIUM 0.5 mmol/L (0.6-1.2)
--- NOTE | 2017-11-11 19:06 | ED GENERAL ADULT ---
History of Present Illness General Chief Complaint: Psychiatric Related Complaint Stated Complaint: PT IS POSTIVE FOR SI Source: patient, family Exam Limitations: no limitations Vital Signs & Intake/Output Vital Signs & Intake/Output Vital Signs Date Time Temp Pulse Resp B/P B/P Pulse O2 O2 Flow FiO2 Mean Ox Delivery Rate 11/12 0753 97.5 80 101/76 11/12 2031 98.2 88 16 149/83 99 Room Air 11/11 1838 85 18 155/80 99 11/11 1614 98.3 97 18 163/98 98 Room Air Room Air ED Intake and Output 11/12 0000 11/11 1200 Intake Total Output Total Balance Patient 185 lb Weight Weight Reported by Patient Measurement Method Allergies Coded Allergies: Penicillins (Intermediate, RASH 07/14/17) Reconcile Medications Citalopram Hydrobromide (Citalopram HBr) 20 MG TABLET 1 TAB PO DAILY MENTAL HEALTH (Reported) Esomeprazole (Nexium) 40 MG CAPSULE.DR 1 CAP PO DAILY ACID REFLUX (Reported) Fluphenazine HCl 1 MG TABLET 2 MG PO AT BEDTIME thought organization/hallucina Levetiracetam (Levetiracetam ER) 500 MG TAB.ER.24H 2 TAB PO BID SEIZURES ( Reported) [place] Carbonate ([place] Carbonate ER) 300 MG TABLET.ER 1 CAP PO DAILY MENTAL HEALTH (Reported) [place] Carbonate ([place] Carbonate ER) 450 MG TABLET.ER 1 TAB PO QPM MENTAL HEALTH (Reported) Olanzapine 5 MG TABLET 1 TAB PO QPM MENTAL HEALTH (Reported) Phenytoin Sodium Extended 100 MG CAPSULE 1 CAP PO BID SEIZURES (Reported) Triage Note: PT TO ED WITH C/O "I HAVE RACING THOUGHTS OF KILLING MYSELF, I TRIED LAST WEEK WITH A KNIFE BUT MY STOPPED ME". THERAPIS TOOK ME OFF CELEXA AND PUT ME ON ZOLOFT "I'M HAVE A HAD TIME ADUSTING TO IT, AND THE ANTI PSYCHOTIC MED MAKES ME WANT TO SLEEP ALL THE TIME". Triage Nurses Notes Reviewed? yes HPI: 32 yo M PMH Bipolar disorder presenting with deprssion, SI. Worsening depressed mood for the last 1-2 months associated with icnreased life stressors (lost job, arguing with , ect.), had been having "racing thoughts of suicide" for the last 1-2 weeks with plan to slit his wrists or overdose on medication, patient states that 3-4 nights ago he brandished a knife in kitchen and threatened to kill himself in front of his , multiple prior suicide attempts by lamictal overdose. Patient sees an outpatient therapist who reccomended he come to the ED yesterday, recently changed from celexa to zoloft 1 week ago. In the ED patient is calm and cooperative, endorses ongoing SI, but denies toxic ingestion or self injury. Denies EtOH or drug use. Patient has been in his usual state of health otherwise, Denies all medical complaints including fevers, chills, chest pain, palpitations, SOB, abdominal Sx, urinary Sx, tremors, headache, neck pain or focal neurologic Sx. (Yohannes Tena MD) Past History Travel History Traveled to [place] past 21 day No Medical History Any Pertinent Medical History? see below for history Neurological: seizure EENT: NONE Cardiovascular: NONE Respiratory: NONE Gastrointestinal: GERD Hepatic: NONE Renal: NONE Musculoskeletal: NONE Psychiatric: bipolar disease Endocrine: NONE Blood Disorders: NONE Cancer(s): NONE BURNER HAND/Reproductive: NONE History of MRSA: No History of VRE: No History of CDIFF: No Surgical History Surgical History: non-contributory Psychosocial History Who do you live with Family What is your primary language Swedish Tobacco Use: Never used ETOH Use: denies use Illicit Drug Use: denies illicit drug use Family History Hx Contributory? Yes (Yohannes Tena MD) Review of Systems Review of Systems Constitutional: Reports: no symptoms. EENTM: Reports: no symptoms. Respiratory: Reports: no symptoms. Cardiovascular: Reports: no symptoms. GI: Reports: no symptoms. Genitourinary: Reports: no symptoms. Musculoskeletal: Reports: no symptoms. Skin: Reports: no symptoms. Neurological/Psychological: Reports: see HPI. Hematologic/Endocrine: Reports: no symptoms. Immunologic/Allergic: Reports: no symptoms. All Other Systems: Reviewed and Negative (Yohannes Tena MD) Physical Exam Physical Exam General Appearance: well developed/nourished, no apparent distress, alert, awake Head: atraumatic Eyes: Bilateral: PERRL, EOMI. Ears, Nose, Throat: moist mucus membranes Neck: normal inspection, full range of motion Respiratory: no respiratory distress, lungs clear Cardiovascular: regular rate/rhythm Gastrointestinal: soft, non-tender Comments: Neuro: No focal neurologic deficits, no tremors Psych: Blunt affect, depressed mood, (+) SI with plan to slit wrists Core Measures ACS in differential dx? No CVA/TIA Diagnosis: No Sepsis Present: No Sepsis Focused Exam Completed? No (Darinel CASTILLO,Yohannes) Progress Differential Diagnoses I considered the following diagnoses in my evaluation of the patient: [ Psychiatric pathology, metabolic derrangement, infection] Plan of Care: Orders Procedure Date/time Status Regular Diet 11/12 B Active Add-on Test (ER Only) 11/11 2114 Active Vital Signs 11/11 2100 Active Inpt Psych Teach/Educate 11/11 2100 Active Nutritional Intake, Monitor 11/11 2100 Active Inpt Psych Auricular Acupunctu 11/11 2100 Active PHENYTOIN 11/12 2051 Complete Admit to inpatient psych 11/11 2026 Active Add-on Test (ER Only) 11/11 2016 Active Activity/Ambulation 11/12 2015 Active Admit to inpatient psych 11/12 2011 Active Vital Signs 11/12 2011 Active Add-on Test (ER Only) 11/11 2010 Active URINE DRUGS OF ABUSE 11/11 1858 Complete THYROXINE 11/11 1744 Active LIPID PANEL 11/11 1744 Active GLYCOSYLATED HGB 11/11 1744 Active FREE T4 11/11 1744 Active Precautions 11/11 1738 Active ED CRISIS PSYCH CONSULT 11/11 1738 Active Intake & Output 11/11 1729 Complete THYROID STIMULATING HORMONE 11/11 1718 Active LITHIUM 11/11 1718 Active ETHANOL 11/11 1718 Active CBC WITHOUT DIFFERENTIAL 11/11 171 Complete BASIC METABOLIC PANEL 11/11 171 Active MISSING MEDICATION FORM 11/11 UNK Active Current Medications Sig/Evelyne Start time Last Medication Dose Stop Time Status Admin [place] Carbonate 300 MG 0800 11/12 08 AC ([place] Carbonate) Omeprazole 40 MG DAILY AC 11/12 0700 AC 11/12 (Prilosec) 0620 Hydroxyzine HCl 25 MG Q6H PRN 11/11 2099 AC (Atarax) Levetiracetam 1,000 MG BID 11/11 2099 AC 11/11 (Keppra) 2259 [place] Carbonate 450 MG AT BEDTIME 11/11 2099 AC 11/11 ([place] Carbonate) 2300 Olanzapine 5 MG AT BEDTIME 11/11 2099 AC 11/11 (Zyprexa) 2300 Phenytoin 100 MG BID 11/11 2099 AC 11/11 (Dilantin ER) 8914 Benztropine Mesylate 1 MG Q6P PRN 11/11 2014 AC (Cogentin 1 MG Tablet) Benztropine Mesylate 1 MG Q6P PRN 11/11 2014 AC (Cogentin) Haloperidol 5 MG Q6P PRN 11/11 2014 AC (Haldol) Haloperidol 5 MG Q6P PRN 11/11 2014 AC (Haldol) Lorazepam 2 MG Q6P PRN 11/11 2014 AC (Ativan) Lorazepam 2 MG Q6P PRN 11/11 2014 AC (Ativan) Laboratory Tests 11/12/17 0010: Phenytoin 32.1 H 11/11/172010: Hemoglobin A1c Cancelled, Triglycerides Cancelled, Cholesterol Cancelled, LDL Cholesterol, Calc Cancelled, HDL Cholesterol Cancelled, Cholesterol/HDL Ratio Cancelled 11/11/170: Urine Opiates Screen < 100, Methadone Screen < 40, Barbiturate Screen 61, Ur Phencyclidine Scrn < 6.00, Amphetamines Screen < 100, U Benzodiazepines Scrn < 85, Urine Cocaine Screen < 50, Urine Cannabis Screen < 5.00 11/11/17 1744: Anion Gap 10, Estimated GFR > 60, BUN/Creatinine Ratio 13.3, Glucose 81, Hemoglobin A1c Pending, Calcium 9.0, Triglycerides 228 H, Cholesterol 207 H, LDL Cholesterol, Calc 116, HDL Cholesterol 46, Cholesterol/HDL Ratio 5 H, TSH 5.800 H, Free T4 0.90, Thyroxine (T4) 5.2, CBC w Diff NO MAN DIFF REQ, RBC 4.85 , MCV 86.0, MCH 29.2, MCHC 34.0, RDW 13.5, MPV 7.3 L, Gran % 68.3, Lymphocytes % 22.3, Monocytes % 8.7, Eosinophils % 0.4, Basophils % 0.3, Absolute Granulocytes 4.7, Absolute Lymphocytes 1.5, Absolute Monocytes 0.6, Absolute Eosinophils 0, Absolute Basophils 0, [place] 0.5 L, Serum Alcohol < 10.0 Physician MDM: 32 yo M PMH Bipolar disorder presenting with deprssion, SI. VSS, exam as above. DDx: Psychiatric pathology, low cocnern for metabolic, infectious , or toxic precipitants, low concern for toxic ingestion. Labs remarkale for low Li and elevated TSH (will add on reflex T4). Evaulated by ED crisis who appropriately reccomended admission. Initial ED EKG: none (Darinel CASTILLO,Yohannes) Departure Departure Disposition: STILL A PATIENT Condition: Stable Clinical Impression Primary Impression: Suicidal ideation Secondary Impressions: Bipolar disorder Referrals: Anuradha Dozier MD (PCP/Family) Departure Forms: Customer Survey General Discharge Information (Darinel CASTILLO,Yohannes) Departure Comments 11/11/17 Agree with the physician's evaluation and plan. (Samy Paul DO) Critical Care Note Critical Care Note Critical Care Time: non-applicable (Darinel CASTILLO,Yohannes)
--- NOTE | 2017-11-11 19:54 | ED PSYCH CRISIS CONSULTATION ---
See Addendum Crisis Consult Basic Assessment Date of Consult: 11/11/17 Responsible Person/Accompanied By: by himself Insurance Authorization: Insurance #1: Insurance name: BARI Portillo C&A Phone number: Policy number: [id number] Group number: [id number] Authorization number: ED Provider: Patient's ED Provider: Darinel CASTILLO,Yohannes Primary Care Physician: Patient's PCP: Jacoby CASTILLO,Anuradha PCP's Current Psychiatrist: Lizbet Guillen APRN Chief Complaint: Psychiatric Related Complaint Patient's Quote: "I have racing thoughts of hurting myself" Present Illness: Pt is a 32 year old male arriving to ER, due to increasing thoughts of suicide. Pt offers he called outpatient at to see if he could see Lizbet Guillen APRN sooner, as he feels his medicines are not working, "they make me tired, and I'm having racing thoughts to kill myself, I've been looking up ways to do it on the internet". Pt states this feelings have gotten worse over the past 3 weeks. He is catastrophizing, i.e "my son is failing Kndergarten", he also states which may have some truth to it his threatens to take his children and return to [place], without him. Pt has been admitted in July of 2017 and 2012 to [facility] for a similar presentation, carrying the diagnosis Bipolar with psychotic features. He is currently not experiencing AH/VH. He denies Hi. He denies drinking etoh or substance abuse. He reports lack of sleep, and feeling helpless and hopeless. 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 He is the Father of 2 children 5 years old and 18 months. [facility], Dr. Kovacs has admitted this patient. Had several factors of concern on the C-SSRS scale including current, si, hoplesness, loss, and previous si attempts. Patient's Address: [address] [place] [address] Other Phone Number: Who Do You Live With? Family Family/Informants Interviewed: left voicemail for his Father. Allergies - Coded Allergies: Penicillins (Intermediate, RASH 07/14/17) Current Medications - Scheduled Medications Citalopram Hydrobromide (Citalopram HBr) 20 MG TABLET 1 TAB PO DAILY MENTAL HEALTH #30 (Reported) Entered as Reported by James Cheng on 07/14/17 1125 Esomeprazole (Nexium) 40 MG CAPSULE.DR 1 CAP PO DAILY ACID REFLUX #90 ( Reported) Entered as Reported by James Cheng on 07/14/17 1123 Fluphenazine HCl 1 MG TABLET 2 MG PO AT BEDTIME thought organization/hallucina #30 TAB Prescribed by Aguila Rider MD on 07/18/17 Levetiracetam (Levetiracetam ER) 500 MG TAB.ER.24H 2 TAB PO BID SEIZURES #120 (Reported) Entered as Reported by James Cheng on 07/14/17 1123 [place] Carbonate ([place] Carbonate ER) 300 MG TABLET.ER 1 CAP PO DAILY MENTAL HEALTH #60 (Reported) Entered as Reported by James Cheng on 07/14/17 1124 [place] Carbonate ([place] Carbonate ER) 450 MG TABLET.ER 1 TAB PO QPM MENTAL HEALTH #30 (Reported) Entered as Reported by James Cheng on 07/14/17 1124 Olanzapine 5 MG TABLET 1 TAB PO QPM MENTAL HEALTH #30 (Reported) Entered as Reported by James Cheng on 07/14/17 1124 Phenytoin Sodium Extended 100 MG CAPSULE 1 CAP PO BID SEIZURES #180 (Reported ) Entered as Reported by James Cheng on 07/14/17 1124 Laboratory Results: Laboratory Tests 11/11/17 1920: Urine Opiates Screen < 100, Methadone Screen < 40, Barbiturate Screen 61, Ur Phencyclidine Scrn < 6.00, Amphetamines Screen < 100, U Benzodiazepines Scrn < 85, Urine Cocaine Screen < 50, Urine Cannabis Screen < 5.00 11/11/17 1744: Anion Gap 10, Estimated GFR > 60, BUN/Creatinine Ratio 13.3, Glucose 81, Calcium 9.0, TSH 5.800 H, CBC w Diff NO MAN DIFF REQ, RBC 4.85, MCV 86.0, MCH 29.2, MCHC 34.0, RDW 13.5, MPV 7.3 L, Gran % 68.3, Lymphocytes % 22.3, Monocytes % 8.7, Eosinophils % 0.4, Basophils % 0.3, Absolute Granulocytes 4.7, Absolute Lymphocytes 1.5, Absolute Monocytes 0.6, Absolute Eosinophils 0, Absolute Basophils 0, [place] 0.5 L, Serum Alcohol < 10.0 Past History Past Medical History Neurological: seizure EENT: NONE Cardiovascular: NONE Respiratory: NONE Gastrointestinal: GERD Hepatic: NONE Renal: NONE Musculoskeletal: NONE Psychiatric: bipolar disease Endocrine: NONE Blood Disorders: NONE Cancer(s): NONE COMMUNICATIONS ASSOCIATE/Reproductive: NONE Past Surgical History Surgical History: non-contributory Psychosocial History Strengths/Capabilities: 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 Despite reporting financial problems he reports he can pay his mortgage every month. Physical Limitations (Interventions): none observed Psychiatric Treatment History Psych Treatment Psychiatric Treatment Yes Inpatient Treatment Yes Outpatient Treatment Yes Location of Treatment [facility] in 2011 and 2017 Reason for Treatment Bipolar psychotic d/o Dates of Treatment 2011/2017 Response to Treatment did improve Diagnosis by History: Bipolar Disorder with psychotic features MRE depressed Substance Use/Abuse History Drug Use/Abuse Substances Used/Abused No Substance Abuse Treatment Substance Abuse Treatment Past Substance Abuse [place] No Current Mental Status Mental Status Orientation: Person, Place, Situation Affect: Depressed, Hopeless, Manic Speech: WNL Neuro-vegetative: Concentration Poor, Energy Decreased, Helpless, Loss of Interest Appearance Appearance- Dress/Hygiene: WNL/hygiene Behaviors Thought Process: Flight of Ideas Thought Content: WNL Memory: WNL Insight: Fair SI/HI Risk Assessment Past Suicidal Ideation/Attempts Yes Current Suicidal Ideation/Att Yes Past Homicidal Ideation/Att: No Current Homicidal Ideation/Attempts No Degree of Intent: None Danger To: Self Gravely Disabled: Poor Impulse Control Risk Factors: history of suicide atmpts, lack of outcome concern, male, limited support Lethality Ratin PTSD Checklist PTSD Done? patient declined ED Management Sitter: Yes Restraints: No DSM5/PS Stressors/Medical Prob Diagnosis' (DSM 5, Stressors, Medical): Bipolar Disorder with psychotic features F31.2 Current GAF: 26 Departure Disposition Psych Medical Clearance Medically Cleared at: 45 Time Started: 744 Time Ended: 844 Psychiatrist Consulted: Dr. Zulema Kovacs Date Disposition Established: 11/11/17 Time Disposition Established: 2022 Plan for Disposition - Modality: Inpatient Psychiatry Facility: [facility] Follow-up Appt Date: 11/11/17 Follow-Up Appt Time: 2022 Rationale for Disposition: Pt is actively having thoughts of si and wants to voluntarily be admitted to the hospital, Dr. Kovacs agrees pt appropriate for this level of care and will; be admitted to [facility]. Type of IP Admission: Voluntary Referrals Anuradha Dozier MD (PCP/Family)
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
[2017-11-12 07:53] VITALS: BP 101/76
--- NOTE | 2017-11-12 11:34 | CPS PROVIDER INIT ASMT PSYCH ---
Psychiatric Admission Senior Piping Designer's Note Reviewed: Yes Patient Seen and Examined: Yes Identifying Information: Pt is a 32 year old male Chief Complaint: On arrival at ED, stated "I have racing thoughts of hurting myself." Reaction to Hospitalization: Calm and cooperative History of Present Illness Onset of Illness: Pt has been admitted in July of 2017 and 2011 to [facility] for a similar presentation, with diagnosis of Bipolar d/o with psychotic features. Circumstances Leading to Admission: Self presented to the emergency department. As per triage, patient stated "I have racing thoughts of killing myself, I tried last week with a knife but my stopped me. Therapist took me off Celexa and put me on Zoloft and I have had a hard time adjusting to it, and the antipsychotic medication makes me want to sleep all the time." Problem(s) Justifying Need for Admission: Suicidal ideation, major depressive disorder. Patient reports 4 suicidal attempts, by overdosing on lamictal, once by cutting. Other HPI: Patient reports 4 suicidal attempts, by overdosing on lamictal, once by cutting. Past Psychiatric History Past Diagnosis(es)- if any: F31.5 - Bipolar disorder, currently depressed, severe, with psychotic features Medical Dx: Complex Partial Epilepsy (controlled with medication), GERD, facial spasms (?medication related) Past Precipitating Factors- if any: One time pt lost his job. The first time he was accused of being mckeon, at which point he lost all of his friends. - Include inpatient and outpatient treatment Treatment History: As per outpatient notes: Past medication trials: lamictal - OD x 3 occasions, saphris - "praying more and heard demons talking", zyprexa 2.5mg-10mg, geodon, abilify 20mg- helped with thoughts, but experienced facial spasms, vraylar, rexulti - had seizure, lithium, depakote - "as a child for seizures", tegretol - "on for epilepsy, never for mood stabilizer", klonopin , lexapro - psychotic symptoms, celexa, hydroxyzine History of Suicide Attempts or Gestures Patient reports 4 suicidal attempts, by overdosing on lamictal, once by cutting, all since 2011. Substance Abuse History: Past history of cocaine use in 2002 for about 6 months. Alcohol abuse stopped in 2010. Allergies: Coded Allergies: Penicillins (Intermediate, RASH 07/14/17) Home Med List: Zoloft 50mg daily AM lithium ER 300mg daily AM lithium ER 450mg daily PM fluphenazine 2.5mg daily AM propranolol 10mg daily PM - no longer taking hydroxyzine 10-20mg daily bedtime - not currently taking Other Medications: keppra xr 1000mg twice daily (AM/PM), dilantin (for facial spasms) 200mg twice daily (AM/PM), nexium 40mg daily AM, vitamin D 2000 units daily AM - Include any medical condition(s) that may - impact the patient's recovery/remission Past History Medical History Neurological: seizure EENT: NONE Cardiovascular: NONE Respiratory: NONE Gastrointestinal: GERD Hepatic: NONE Renal: NONE Musculoskeletal: NONE Psychiatric: bipolar disease Endocrine: NONE Blood Disorders: NONE Cancer(s): NONE 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 Paternal grandfather depression. Substance Use: Denies Suicides: Denies Social History Living Situation: and two children (5 & 18 months), live in their own [facility]. Significant Relationships (family/friends): and two children, father and grandmother in [place]. Education: BA in computer science. 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 - #1 Recognizing dangerous situations. - #2 Coping Skills. - #3 Basic information about quitting. Status of Tobacco Cessation Counseling: Not Applicable Cessation Med Status Not Applicable Alcohol Screening - ETOH screen POS if BAL >=80 or Audit-C>= M4/F3 Audit-C Score from Diag Assess: 0 Blood Alcohol Level: Laboratory Tests 11/11 1744 Toxicology Serum Alcohol (<10 MG/DL) < 10.0 Alcohol Use Screening Results: Neg per Audit C &/or BAL - If ETOH counseling indicated - the following topics are required. - #1 Express concern about the patient's - drinking at unhealthy levels, include informing - of national norms for moderate drinking: - men <= 14 drinks/week, max 4 drinks/occasion - women <= 7 drinks/week, max 3 drinks/occasion - #2 Providing feedback, including linking alcohol to - negative physical effects (liver injury, hypertension) - negative emotional effects (relationship problems and - depression) - negative occupational consequences (reduced work - performance) - #3 Advising the patient to abstain from alcohol or - to drink below national norms for moderate drinking - (as listed above). Status of ETOH Use Counseling: N/A B/C NO ETOH Use Metabolic Screening - Screen if on a Neuroleptic Medication - Metabolic screening should include: - Blood Pressure, BMI, Glucose or Hgb A1c, & a - Lipid profile from within the past 365 days. Metabolic Screening () Not Applicable, patient not on a neuroleptic. OR ([x]) Patient on a neuroleptic(s) . Enter below results for Hemoglobin A1C, and lipid panel if obtained during the last 365 days. BMI: 30.700 Blood Pressure: 101/76 Laboratory Results From [facility] (If applicable): Laboratory Tests Range/Units 11/114 2010 Chemistry Glucose 65 - 99 mg/dL 81 Hemoglobin A1c 4.2 - 5.8 % 5.1 Cancelled Triglycerides <150 mg/dL 228 H Cancelled Cholesterol < 200 MG/DL 207 H Cancelled LDL Cholesterol, Calc 65 - 129 mg/dL 116 Cancelled HDL Cholesterol 40 - 60 mg/dL 46 Cancelled Cholesterol/HDL Ratio 0.00 - 4.88 % 5 H Cancelled Toxicology Serum Alcohol <10 MG/DL < 10.0 Exam and Plan Mental Status Examination Ambulation Status: Ambulates with steady gait Appearance: Appropriately groomed, wearing hospital paper scrubs. Attitude towards examiner: Calm and cooperative. Psychomotor activity: Hx of facial spasms (pt states as a result of fluphenazine.) No spasms noted at this time. Behavior: Calm and cooperative. Quality of speech: Speech is well articulated, goal-directed, average in rate, volume, and tone. Affect: Euthymic Mood: Somewhat sad Suicidal Ideation: "I have racing thoughts about suicide. But no suicidal ideation right now." Patient states and also believes that he will not kill himself. Protective factors are his children. Homicidal Ideation: Denies Hallucinations: Sees demons when he prays with prayer beads. Patient no longer prays. Paranoid/Delusional Material: Patient reports a history of paranoid delusions, but not at this time. Difficulties with thought organization: Thoughts appear organized. Insight: Good Judgment: Good Orientation: Alert and oriented to person, place and time. Cognition: Within normal limits Memory Function: Within normal limits Estimate of intellectual functioning: Average Assets/Strengths Patient Identified Assets/Strengths: "Willing to learn. I adapt easily." Impression/Plan Impression and Plan: Patient presents again with depression and suicidal ideation. Plan: 1. Increase lithium to 450mg BID. 2. [place] level on Friday morning. 3. Continue other medications at this time. - Include all active medical diagnosis that require tx DSM 5 Diagnosis(es): Bipolar 1 disorder most recent episode depressed - Initial Tx Plan for Active Psych & Medical Conditions Treatment Plan: PLAN: The patient will be monitored on the unit for safety, depression, suicidal ideation, mood lability. Additional information is needed from collaterals, including his . Anticipate once clinically stable, that the patient will be discharged to home and family and be referred to IOP or outpatient. - Factors that would help patient function - in a less restrictive setting. Factors: Resolution of suicidal ideation and alleviation of depression.
[2017-11-12 12:32] VITALS: BP 138/83
--- NOTE | 2017-11-12 13:57 | History & Physical ---
General Information and HPI MD Statement: I have seen and personally examined LE MORAN and documented this H&P. The patient is a 32 year old M who presented with a patient stated chief complaint of depression and suicidal ideation. Source of Information: patient, old records Exam Limitations: no limitations History of Present Illness: The patient is a 32 yo male with h/o bipolar disorder and seizure disorder who presented with c/o depression and suicidal ideation. He described to his outpatient worker having more thoughts of killing himself and described a feeling of hopelessness. His last admission here for the same was July 2017. At the time of my exam he was appropriate with depressed affect. Allergies/Medications Allergies: Coded Allergies: Penicillins (Intermediate, RASH 07/14/17) Home Med list Citalopram Hydrobromide (Citalopram HBr) 20 MG TABLET 1 TAB PO DAILY MENTAL HEALTH (Reported) Esomeprazole (Nexium) 40 MG CAPSULE.DR 1 CAP PO DAILY ACID REFLUX (Reported) Fluphenazine HCl 1 MG TABLET 2 MG PO AT BEDTIME thought organization/hallucina Levetiracetam (Levetiracetam ER) 500 MG TAB.ER.24H 2 TAB PO BID SEIZURES ( Reported) Spray Carbonate (Spray Carbonate ER) 300 MG TABLET.ER 1 CAP PO DAILY MENTAL HEALTH (Reported) Spray Carbonate (Spray Carbonate ER) 450 MG TABLET.ER 1 TAB PO QPM MENTAL HEALTH (Reported) Olanzapine 5 MG TABLET 1 TAB PO QPM MENTAL HEALTH (Reported) Phenytoin Sodium Extended 100 MG CAPSULE 1 CAP PO BID SEIZURES (Reported) Compliance With Home Meds: GOOD Past History Travel History Traveled to [place] past 21 day No Medical History Blood Transfusion Hx: No Neurological: NONE (RECENT INCREASE IN DILANTIN), seizure EENT: NONE Cardiovascular: NONE Respiratory: NONE Gastrointestinal: GERD Hepatic: NONE Renal: NONE Musculoskeletal: NONE Psychiatric: bipolar disease Endocrine: NONE Blood Disorders: NONE Cancer(s): NONE 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 . FATHER (DIABETES). BROTHER (BIPOLAR DISORDER). Psychosocial History Where do you live? Home Who Do You Live With? spouse Smoking Status: Never Smoked ETOH Use: denies use Illicit Drug Use: denies illicit drug use Functional Ability ADLs Independent: dressing, eating, toileting, bathing. Ambulation: independent Review of Systems Review of Systems Constitutional: Denies: no symptoms. EENTM: Denies: no symptoms. Cardiovascular: Denies: no symptoms. Respiratory: Denies: no symptoms. GI: Reports: nausea (SINCE DILANTIN INCREASED). Genitourinary: Denies: no symptoms. Musculoskeletal: Denies: no symptoms. Skin: Denies: no symptoms. Neurological/Psychological: Reports: anxiety, depressed, emotional problems. Hematologic/Endocrine: Denies: no symptoms. Immunologic/Allergic: Denies: no symptoms. Exam & Diagnostic Data Last 24 Hrs of Vital Signs/I&O Vital Signs Date Time Temp Pulse Resp B/P B/P Pulse O2 O2 Flow FiO2 Mean Ox Delivery Rate 11/12 1558 97 138/73 11/12 1232 90 138/83 11/12 0753 97.5 80 101/76 11/11 2032 98.2 88 16 149/83 99 Room Air 11/11 1838 85 18 155/80 99 Intake & Output 11/12 1600 11/12 0800 11/12 0000 Intake Total Output Total Balance Patient 185 lb Weight Weight Reported by Patient Measurement Method Physical Exam General Appearance Alert, Oriented X3, Cooperative, No Acute Distress (DEPRESSED AFFECT) Skin No Rashes, No Breakdown, No Significant Lesion HEENT Atraumatic, PERRLA, EOMI, Mucous Membr. moist/pink Neck Supple, No JVD, No thryomegaly, +2 Carotid Pulse wo Bruit, No LAD Cardiovascular Regular Rate, Normal S1, Normal S2, No Murmurs Lungs Clear to Auscultation, Normal Air Movement Abdomen Normal Bowel Sounds, Soft, No Tenderness, No Hepatospenomegaly, No Masses Neurological Exam Findings: Normal Gait, Normal Speech, Strength at 5/5 X4 Ext, Normal Tone, Sensation Intact, Cranial Nerves 3-12 NL, Reflexes 2+ Cranial Nerves II through XII: INTACT Extremities No Clubbing, No Cyanosis, No Edema, Normal Pulses, No Tenderness/ Swelling Vascular Normal Pulses, Pulses Symmetrical Last 24 Hrs of Labs/Mata: Laboratory Tests 11/12/17 0010: Phenytoin 32.1 H 11/11/17 2011: Hemoglobin A1c Cancelled, Triglycerides Cancelled, Cholesterol Cancelled, LDL Cholesterol, Calc Cancelled, HDL Cholesterol Cancelled, Cholesterol/HDL Ratio Cancelled 11/11/17 1920: Urine Opiates Screen < 100, Methadone Screen < 40, Barbiturate Screen 61, Ur Phencyclidine Scrn < 6.00, Amphetamines Screen < 100, U Benzodiazepines Scrn < 85, Urine Cocaine Screen < 50, Urine Cannabis Screen < 5.00 11/11/17 1744: Anion Gap 10, Estimated GFR > 60, BUN/Creatinine Ratio 13.3, Glucose 81, Hemoglobin A1c 5.1, Calcium 9.0, Triglycerides 228 H, Cholesterol 207 H, LDL Cholesterol, Calc 116, HDL Cholesterol 46, Cholesterol/HDL Ratio 5 H, TSH 5.800 H, Free T4 0.90, Thyroxine (T4) 5.2, CBC w Diff NO MAN DIFF REQ, RBC 4.85, MCV 86.0, MCH 29.2, MCHC 34.0, RDW 13.5, MPV 7.3 L, Gran % 68.3, Lymphocytes % 22.3 , Monocytes % 8.7, Eosinophils % 0.4, Basophils % 0.3, Absolute Granulocytes 4.7 , Absolute Lymphocytes 1.5, Absolute Monocytes 0.6, Absolute Eosinophils 0, Absolute Basophils 0, Spray 0.5 L, Serum Alcohol < 10.0 Assessment/Plan Assessment: Impression/Plan: #Bipolar Disorder- Depression/Suicidal Ideation- as above, increasing thoughts of killing himself. Plan: Admit to [facility]/Psychiatry for close observation and evaluation. Medications as per psychiatry. #Seizure Disorder/Dilantin Toxicity- noted elevated Dilantin level of 32. This was drawn 1 hour after receiving dose. Noted that his chart lists Dilantin 100 mg bid, however the patient states his Neurologist (Dr. Walls) had increased his dose to 200 mg bid in 08/24 after he c/o some facial twitching. After dose increase the twitching resolved, however he states he has had persistent nausea. Dose was held this morning. Plan: Will decrease dose of Dilantin back to 100 mg bid and check level in am 5/ 10. Pending level will evaluate dose. #Hypothyroid- TSH 5.2 and Free T4 0.9- borderline hypothyroid. Patient has been on Spray and possible dose increase being contemplated. Plan: Will start Levothyroxine 0.025 mg daily and follow-up TSH in several weeks. As Ranked By This Provider Problem List: 1. Bipolar disorder with psychotic features 2. Suicidal ideation 3. Seizure disorder 4. Dilantin toxicity 5. Hypothyroidism due to drugs Miscellaneous Miscellaneous Documentation Attending Case Discussed With: David Rasheed MD Primary Care Physician: Jacoby CASTILLO,[facility] Patient sees these Specialists Dr. Hawkins- Neurologtist in [place], [place] Level of Patient Care: [facility] Consults Needed: Consulting Physician: NONE Attending MD Review Statement Attending Statement Attending MD Statement: examined this patient, reviewed EMR data (avail), discussed with nursing, amended to note Attending Assessment/Plan: As above.
[2017-11-12 15:58] VITALS: BP 138/73
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
--- NOTE | 2017-11-12 18:48 | SOCIAL WORKER PROG NOTE PSYCH ---
Social Work Progress Note Progress Note This teletypewriter installer met with patient. He described his mood as "racing thoughts of suicide" for the past three weeks. Patient did not identify a particular plan, however, stated that he had been researching suicide plans on [employer] prior to admission. Patient denied HI. He stated that he has experienced AH/VH, however , only when he prays and uses his prayer beads: "I see a demon who tells me to kill myself." Patient stated that he stopped praying due to the AH/VH. Patient is not agreeable to an IOP as he stated that he plans to start a new job next week and will resign from his current job when his medical leave expires this summer. He denied any substance use. Patient and this teletypewriter installer called his , Erick, and a family meeting has been scheduled for 11/14/17, at 11am with Joeymirian attending by phone ([phone]).
[2017-11-12 19:29] VITALS: BP 140/80
[2017-11-13 07:36] VITALS: BP 130/80
--- NOTE | 2017-11-13 11:06 | SOCIAL WORKER PROG NOTE PSYCH ---
Social Work Progress Note Progress Note SW met this morning with Mikael. He reports "feeling better". He states the addition of Zyprexa has been helpful in decreasing SI and racing thoughts. He reports improved mood and decreased anxiety. He reports feeling apprehensive about visit with today and family meeting as they have been having marital conflict. He reports feeling more hopeful and optimistic about starting new job in [place] on Friday. Pt also discussed discharge plans. Pt reports not thinking IOP is a reasonable plan at this time. Pt suggestes plan to continue with OPS for med management and continue 1-2 support groups/wk with Tosha Wilson.
[2017-11-13 12:08] VITALS: BP 138/77
--- NOTE | 2017-11-13 13:27 | CP SOUTH PROGRESS NOTE PSYCH ---
Psych (Inpt) Progress Note Progress Note Mental Status Examination Ambulates with steady gait, appropriately groomed, wearing hospital paper scrubs. Calm and cooperative. No spasms noted at this time. Speech is well articulated, goal-directed, average in rate, volume, and tone. Euthymic affect but reported mood as "somewhat down." He denied thoughts about suicide. Denied violent thoughts or thoughts of homicide denied hallucinations in the past 24 hours, denied feeling paranoid, there were no delusions, his thoughts appear organized. Good judgment, good insight, alert and oriented to person, place and time. good attention and concentration, no memory deficits Assessment: Patient presented with depression and suicidal ideation. He now says no thoughts of suicid in past 24 hours DSM 5 Diagnosis(es): Bipolar 1 disorder most recent episode depressed Plan: Continue lithium 450mg BID. Continue other medications at this time. The patient will be monitored on the unit for safety, depression, suicidal ideation, mood lability.
[2017-11-13 16:24] VITALS: BP 129/84
[2017-11-13 19:48] VITALS: BP 138/85
--- NOTE | 2017-11-14 08:01 | CP SOUTH PROGRESS NOTE PSYCH ---
Psych (Inpt) Progress Note Progress Note Laboratory Tests 11/14 Phenytoin (10.0 - 20.0 ug/mL) 26.8 H Vital Signs Date Time Temp Pulse B/P B/P O2 11/14 1947 98.3 100 138/85 11/13 1624 92 129/84 11/13 1208 96 138/77 Mental Status Examination: The patient's phenytoin level remains above therapeutic range however it went down and the patient was informed to follow-up with his neurologist regarding whether his dose should be disorder not. He did not show any clinical manifestations of toxicity. The patient was alert and oriented to person, place, and time. He was steady in his gait, He was calm and cooperative. Speech is well articulated, goal-directed, average in rate, volume, and tone. Euthymic affect but reported mood as "somewhat down. " He denied thoughts about suicide. Denied violent thoughts or thoughts of homicide. He denied hallucinations in the past 24 hours, denied feeling paranoid , there were no delusions, his thoughts appear organized. Good judgment, good insight, good attention and concentration, no memory deficits Assessment: Patient presented with depression and suicidal ideation. He now says no thoughts of suicid in past 24 hours The social staff worker myself and a medical student interviewed the patient and his over the form of a conference phone call. DSM 5 Diagnosis(es): Bipolar 1 disorder most recent episode depressed Treatment Plan Update: D/C Home Plan: Continue lithium 450mg BID. Continue other medications at this time. The patient will be monitored on the unit for safety, depression, suicidal ideation, mood lability.
[2017-11-14 08:02] VITALS: BP 132/81
[2017-11-14] MEDS ORDERED: OLANZAPINE5 M2 PO (11:32)
[2017-11-14] MEDS ORDERED: LITHIUM CARBON450 M1 PO (11:32)
[2017-11-14] MEDS ORDERED: NEXIUM40 M1 PO (11:34)
[2017-11-14] MEDS ORDERED: SYNTHROID25 MCG PO (11:34)
[2017-11-14 12:16] VITALS: BP 141/84
--- NOTE | 2017-11-14 12:54 | PN- Att Addend ---
Attending Addendum Attending Brief Note S: The patient is being discharged today. No facial twitching. Dilantin level still above normal. No symptoms of toxicity. O: VS: Vital Signs Date Time Temp Pulse Resp B/P B/P Pulse O2 O2 Flow FiO2 Mean Ox Delivery Rate 11/14 1216 95 141/84 11/14 0802 97.0 90 132/81 11/13 1948 98.3 100 138/85 11/13 1624 92 129/84 Current Medications Sig/Evelyne Start time Last Medication Dose Route Stop Time Status Admin Benztropine Mesylate 1 MG Q6P PRN 11/11 2014 AC PO Benztropine Mesylate 1 MG Q6P PRN 11/11 2014 AC IM Haloperidol 5 MG Q6P PRN 11/11 2014 AC PO Haloperidol 5 MG Q6P PRN 11/11 2014 AC IM Hydroxyzine HCl 25 MG Q6H PRN 11/11 2099 AC PO Levetiracetam 1,000 MG BID 11/11 2099 AC 11/14 PO 0809 Levothyroxine Sodium 0.025 MG DAILY AC 11/12 1359 AC 11/14 PO 0716 [place] Carbonate 450 MG 0800 11/13 08 AC 11/14 PO 0809 [place] Carbonate 450 MG AT BEDTIME 11/11 2099 AC 11/13 PO 2136 Lorazepam 2 MG Q6P PRN 11/11 2014 AC PO Lorazepam 2 MG Q6P PRN 11/11 2014 AC IM Olanzapine 5 MG AT BEDTIME 11/11 2099 AC 11/13 PO 2136 Omeprazole 40 MG DAILY AC 11/12 0700 AC 11/14 PO 0715 Phenytoin 100 MG BID 11/11 2099 AC 11/14 PO 0809 Physical Exam- no change Labs: Laboratory Tests 11/14 11/12 11/11 11/11 0644 0010 2010 1919 Chemistry Hemoglobin A1c Cancelled Triglycerides Cancelled Cholesterol Cancelled LDL Cholesterol, Calc Cancelled HDL Cholesterol Cancelled Cholesterol/HDL Ratio Cancelled Toxicology Urine Opiates Screen (>2000 NG/ML) < 100 Methadone Screen (>300 NG/ML) < 40 Barbiturate Screen (>200 NG/ML) 61 Phenytoin (10.0 - 20.0 ug/mL) 26.8 H 32.1 H Ur Phencyclidine Scrn (>25 NG/ML) < 6.00 Amphetamines Screen (>1000 NG/ML) < 100 U Benzodiazepines Scrn (>200 NG/ML) < 85 Urine Cocaine Screen (>300 NG/ML) < 50 Urine Cannabis Screen (>50 NG/ML) < 5.00 11/11 1744 Chemistry Sodium (137 - 145 mmol/L) 142 Potassium (3.5 - 5.1 mmol/L) 4.3 Chloride (98 - 107 mmol/L) 104 Carbon Dioxide (22 - 30 mmol/L) 27 Anion Gap (5 - 16) 10 BUN (9 - 20 mg/dL) 8 L Creatinine (0.7 - 1.2 mg/dL) 0.6 L Estimated GFR (>60 ml/min) > 60 BUN/Creatinine Ratio (7 - 25 %) 13.3 Glucose (65 - 99 mg/dL) 81 Hemoglobin A1c (4.2 - 5.8 %) 5.1 Calcium (8.4 - 10.2 mg/dL) 9.0 Triglycerides (<150 mg/dL) 228 H Cholesterol (< 200 MG/DL) 207 H LDL Cholesterol, Calc (65 - 129 mg/dL) 116 HDL Cholesterol (40 - 60 mg/dL) 46 Cholesterol/HDL Ratio (0.00 - 4.88 %) 5 H TSH (0.270 - 4.200 uIU/mL) 5.800 H Free T4 (0.79 - 2.35 ng/dL) 0.90 Thyroxine (T4) (4.5 - 10.9 ug/dL) 5.2 Hematology CBC w Diff NO MAN DIFF REQ WBC (4.8 - 10.8 /CUMM) 6.9 RBC (4.70 - 6.10 /CUMM) 4.85 Hgb (14.0 - 18.0 G/DL) 14.2 Hct (42 - 52 %) 41.7 L MCV (80.0 - 94.0 FL) 86.0 MCH (27.0 - 31.0 PG) 29.2 MCHC (33.0 - 37.0 G/DL) 34.0 RDW (11.5 - 14.5 %) 13.5 Plt Count (130 - 400 /CUMM) 207 MPV (7.4 - 10.4 FL) 7.3 L Gran % (42.2 - 75.2 %) 68.3 Lymphocytes % (20.5 - 51.1 %) 22.3 Monocytes % (1.7 - 9.3 %) 8.7 Eosinophils % (0 - 5 %) 0.4 Basophils % (0.0 - 2.0 %) 0.3 Absolute Granulocytes (1.4 - 6.5 /CUMM) 4.7 Absolute Lymphocytes (1.2 - 3.4 /CUMM) 1.5 Absolute Monocytes (0.10 - 0.60 /CUMM) 0.6 Absolute Eosinophils (0.0 - 0.7 /CUMM) 0 Absolute Basophils (0.0 - 0.2 /CUMM) 0 Toxicology [place] (0.6 - 1.2 mmol/L) 0.5 L Serum Alcohol (<10 MG/DL) < 10.0 Impression/Plan: #Dilantin Toxicity- level 26.8, however no symptoms of toxicity. May be residual elevation due to prolonged higher dose of Dilantin. Plan: Patient advised to go home on Dilantin 100 mg bid and follow-up wit his Neurologist- Dr. Hawkins. Would not advise increasing to 200 mg bid. Should have Dilantin level in 1 week. #Seizure Disorder- no seizures of facial twitching noted. Plan: As above, follow-up with OP Neurology. #Hypothyroid- on Levothyroxine. Plan: Follow-up TSH in approximately 6 weeks.
--- NOTE | 2017-11-14 13:28 | Patient Discharge Instructions ---
Psych Discharge Inst General Discharge Information Reason for Admission: thoughts of suicide Psy Discharge Primary Diag+ Bipolar I Summary Tests/Major Procedures Lab Phenytoin 26.8 ug/mL H 11/14/17 0644 Studies Pending at DC: None Patient Instructions Contact Information Your Psychiatrist on [facility] was Aguila Rider MD * If you are experiencing an emergency related to this hospitalization, please call [phone] to contact the treating psychiatrist or the psychiatrist-on- call. * To Request a copy of your medical records, please contact the Medical Records Department at [phone]. * To request results of studies pending at the time of discharge, please call [phone]. * Continue your Medications until directed to stop by your Healthcare provider. General Medication Information Please continue to take your new medications and your continued home medications , unless otherwise indicated on your discharge medication list, or unless directed by your MD or IMMIGRATION PATROL INSPECTOR to stop them. Special Instructions Diet Regular Activity Normal - Tobacco Use Treatment Offered Post DC Medications Offered: Not Applicable Post DC Tobacco Treatment Plan: Not Applicable - EtOH/Drug Use D/O Treatment Offered Post DC Medications Offered: NA-No EtOH/Drug Use D/O Post DC EtOH/SubAbuse TX Plan: NA-No EtOH/Drug Use D/O Metabolic Screening Patient on a neuroleptic(s) . Enter below results for Hemoglobin A1C, and lipid panel if obtained during the last 365 days. BMI: 30.700 Blood Pressure: 141/84 Laboratory Results From [facility] (If applicable): Lab Cholesterol 207 MG/DL H 11/11/17 1744 Cholesterol/HDL Ratio 5 % H 11/11/17 1744 HDL Cholesterol 46 mg/dL 11/11/17 1744 Hemoglobin A1c 5.1 % 11/11/17 1744 LDL Cholesterol, Calc 116 mg/dL 11/11/17 1744 TSH 5.800 uIU/mL H 11/11/17 1744 Triglycerides 228 mg/dL H 11/11/17 1744 Advance Directives Does the Patient have Medical Advance Directives No/Refused further info Does Pt have Psychiatric Advance Directives? No/Refused further info Does Patient have a Designated Surrogate Decision Maker: No Information About Psychiatric Advance Directives Provided? Refused Discharge Plan Post Hospital Treatment Plan: [facility]
--- NOTE | 2017-11-14 13:31 | DISCHARGE SUMMARY REPORT-PSYCH ---
Visit Information Visit Dates/Diagnosis' Admission Date: 11/11/17 Discharge Date: 11/14/17 Reason for Admission: thoughts of suicide Psy Discharge Primary Diag: Bipolar I Hospital Course Course Allergies: Coded Allergies: Penicillins (Intermediate, RASH 07/14/17) Discharge HBIPS - Tobacco Use Treatment Offered - EtOH/Drug Use D/O Treatment Offered Metabolic Screening - Screen if on a Neuroleptic Medication - Metabolic screening should include: - Blood Pressure, BMI, Glucose or Hgb A1c, & a - Lipid profile from within the past 365 days. Discharge Instructions General Discharge Information Discharge Diet Regular Discharge Activity Normal Referrals Ordered Referrals Provider Referral 11/24/17 For Groups: [[facility]] [facility] [address], [place] [phone] Intake appointment: 11/24/17, at 11am with Phyllis Patient is interested in engaging in outpatient groups at [facility]. Provider Referral 11/27/17 For Groups: [[facility]] [facility] [address] [place] [address] Medication appointment: , 11/27/17, at 8:30am with Dr. Roy Provider Referral 12/09/17 For Groups: [[facility]] [facility] [address] [place] [address] Medication appointment: 12/09/17, at 9am with Lizbet Guillen APRN Prescriptions Stop taking the following medications: [place] Carbonate (Killian Carbonate ER) 300 MG TABLET.ER ORAL DAILY Qty = 60 [place] Carbonate ([place]illian Carbonate ER) 450 MG TABLET.ER ORAL Every night Qty = 30 Citalopram Hydrobromide (Citalopram HBr) 20 MG TABLET ORAL DAILY Qty = 30 Fluphenazine HCl (Fluphenazine HCl) 1 MG TABLET ORAL AT BEDTIME Qty = 30 Continue taking these medications: Levetiracetam (Levetiracetam ER) 500 MG TAB.ER.24H 2 Tablet ORAL TWICE DAILY Qty = 120 Comments: Last Taken:11/14/17 Time:0800 Phenytoin Sodium Extended (Phenytoin Sodium Extended) 100 MG CAPSULE 1 Capsule ORAL TWICE DAILY Qty = 180 Comments: Last Taken:11/14/17 Time:0800 Olanzapine (Olanzapine) 5 MG TABLET 1 Tablet ORAL Every night Qty = 30 Comments: Last Taken:11/13/17 Time:2129 This prescription has been renewed Esomeprazole (Nexium) 40 MG CAPSULE.DR 1 Capsule ORAL DAILY Qty = 30 Comments: Last Taken:11/14/17 SUBSTITUTED WITH PRILOSEC Time:0700 This prescription has been renewed Start taking the following new medications: Levothyroxine Sodium (Synthroid) 25 MCG TABLET 0.025 Milligram ORAL DAILY BEFORE BREAKFAST Qty = 30 No Refills Comments: Last Taken:11/14/17 Time:0700 [place] Carbonate ([place]illian Carbonate ER) 450 MG TABLET.ER 1 Tablet ORAL TWICE DAILY Qty = 60 No Refills Comments: Last Taken:11/14/17 Time:0800 Studies Pending at Discharge None
[2017-11-14] MEDS ORDERED: PHENYTOIN SODI100 MG PO (13:34)
[2017-11-14] MEDS ORDERED: LEVETIRACETAM500 M3 PO (13:35)
--- NOTE | 2017-11-14 17:17 | SOCIAL WORKER PROG NOTE PSYCH ---
Social Work Progress Note Progress Note This entry writer met with patient. He described his mood as "I don't have those racing thoughts anymore and I'm able to sleep." He denied SI/HI/AH/VH and stated that he finds his medications to be effective. Patient stated that he is looking forward to discharging today and plans to spend the weekend with "family time" on Friday and going to the restoration on Friday. This entry writer inquired about his plans to go to the restoration due to his previous report that praying is accompanied by seeing and hearing a demon. Patient stated that this only occurs when using prayer beads and not when praying through holding his hands and closing his eyes. Patient identified a safety plan to "talk to my , call Lizbet [Minyd], come to [facility] and use my coping skills." He was informed that he would be provided with crisis numbers and warm lines upon discharge. Patient was agreeable to utilizing these resources. Pravin Boogie (medical student), this entry writer and the patient met with his who attended by phone. Symptoms, medicaitons and discharge plans were reviewed. Patient's was agreeable to this and did not identify any concerns about discharge. Patient stated that he has his car parked in the parking lot. Patient's was agreeable to the patient driving home, as was Dr. Rider. [facility] appointments (as accepted by the patient and his ): 11/24/17, at 11am with Phyllis Abreu LCSW - intake , 11/27/17, at 8:30am with Dr. Roy - medication 12/09/17, at 9am with Lizbet Guillen APRN - medication Patient was not agreeable to IOP as he plans to begin a new job on Friday. He will speak with Phyllis about attending outpatient groups, and in interest of returning to the outpatient group on Wednesdays at 6pm with Tosha Wilson LCSW. A message was relayed to Phyllis, Dr. Roy and Rocky Guillen regarding this. Faxed Referral(s) Referred To: [facility] Transition of Care Documents sent: Health Summary, transfer note Faxed to: [facility] Fax #: [phone] Faxed by: Sheldon Cohen LCSW Date faxed: 11/14/17 Time Faxed: [phone]
== END 2017-11-14 12:54 | DRG 753 ==
LOC: ERH 16:07 → ERHI 20:12 → CP SOUTH 20:12 → ENTRNSPT 20:35 → EDTRNSPT 20:44 → EDTRNSPTSTS 20:44 → CP SOUTH 20:48 → CMPTRNSPT 20:51 → CP SOUTH 11-13 12:53
PROVIDERS: Student in an Organized Health Care Education/Training Program
DX: F31.9 Bipolar disorder, unspecified (principal)
CPT/HCPCS: 36415; 80307; G0463; G0480